=== PATIENT | male | born 1955 | race Two or more races ===

== ENCOUNTER 2019-12-28 19:37 | Inpatient (IN) | payer MEDICAID ==
[~2019-12-28] VITALS: Ht 167.6 cm; Wt 84.9 kg
--- NOTE | 2019-12-28 19:45 | NUR ---
ED Nurse Note: BROUGHT IN BY ANGY DONG 27 FROM HOME C/O SOB WITH EXERTION X 4DAYS. PT STATES HE WAS TESTED POSITIVE COVID 4 WKS AGO. PT PRESENTS WITH COUGH AND WEAKNESS. PT IS 97% ON 15L NRB. VSS, NAD, AAOX4, AMBULATORY, ERMD AT BEDSIDE.
--- NOTE | 2019-12-28 19:55 | NUR ---
ED Nurse Note: BLOOD, URINE, COVID COLLECTED AND SENT TO LAB. XR AT BEDSIDE
[2019-12-28 19:56] VITALS: BP 163/78
[2019-12-28 20:06] LABS: BASOPHILS % (AUTO) 0.6 % (0.0-2.0); EOSINOPHILS % (AUTO) 0.7 % (0.0-3.0); HEMATOCRIT 46.4 % (42.0-52.0); HEMOGLOBIN 15.9 G/DL (14.2-18.0); LYMPHOCYTES % (AUTO) 16.1 % (20.0-45.0); MEAN CORPUSCULAR VOLUME 87 FL (80-99); MONOCYTES % (AUTO) 9.8 % (1.0-10.0); NEUTROPHILS % (AUTO) 72.8 % (45.0-75.0); PLATELET COUNT 330 K/UL (150-450); RED BLOOD COUNT 5.31 M/UL (4.70-6.10); RED CELL DISTRIBUTION WIDTH 12.2 % (11.6-14.8); WHITE BLOOD COUNT 9.6 K/UL (4.8-10.8)
[2019-12-28 20:08] LABS: ANION GAP 9 mmol/L (5-15); BLOOD UREA NITROGEN 12 mg/dL (7-18); CALCIUM 8.7 MG/DL (8.5-10.1); CARBON DIOXIDE 26 MMOL/L (21-32); CHLORIDE 99 MMOL/L (98-107); CREATININE 0.8 MG/DL (0.55-1.30); POTASSIUM 3.9 MMOL/L (3.5-5.1); SODIUM 134 MMOL/L (136-145)
[2019-12-28 20:11] LABS: APPEARANCE,URINE CLEAR; BILIRUBIN, URINE NEGATIVE (NEGATIVE); GLUCOSE, URINE (UA) 4+ (NEGATIVE); KETONES,URINE 1+ (NEGATIVE); LEUKOCYTE ESTERASE ,URINE NEGATIVE (NEGATIVE); NITRITE,URINE NEGATIVE (NEGATIVE); PH,URINE 8 (4.5-8.0); PROTEIN,URINE 2+ (NEGATIVE); UROBILINOGEN,URINE 8 MG/DL (0.0-1.0)
[2019-12-28 20:12] LABS: ALANINE AMINOTRANSFERASE 46 U/L (12-78); ALBUMIN 2.5 G/DL (3.4-5.0); ALBUMIN/GLOBULIN RATIO 0.5 (1.0-2.7); ALKALINE PHOSPHATASE 102 U/L (46-116); ASPARTATE AMINO TRANSFERASE 41 U/L (15-37); BILIRUBIN,TOTAL 0.8 MG/DL (0.2-1.0)
[2019-12-28 20:16] LABS: COLOR,URINE YELLOW
--- NOTE | 2019-12-28 20:18 | Emergency Room Report ---
History of Present Illness General Chief Complaint: Dyspnea/Respdistress Present Illness HPI Disclaimer: Please note that this report is being documented using M[employer] technology. This can lead to erroneous entry secondary to incorrect interpretation by the dictating instrument. HPI: 64-year-old male history of hypertension and diabetes presents from home due to shortness of breath. Patient states he has been short of breath for the past 2 or so. Especially on exertion. Patient also having trouble sleeping. Patient reports a positive coronavirus test 4 weeks ago. Denies any pain nausea or vomiting to me. Patient does report a mildly productive cough. Intermittent fever. Denies any cardiac history. 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 COVID-19 Screening: PUI COVID-19 COVID-19 Testing Source: never received results Patient History Reviewed Nursing Documentation: PMH: Agreed; PSxH: Agreed Nursing Documentation-PMH Hx Hypertension: Yes Hx Diabetes: Yes Review of Systems All Other Systems: negative except mentioned in HPI Physical Exam Vital Signs Date Time Temp Pulse Resp B/P (MAP) Pulse Ox O2 Delivery O2 Flow Rate FiO2 12/28/19 19:28 96 20 173/101 (125) 96 Non-Rebreather 15.0 12/28/19 19:56 97 12/28/19 19:56 99.7 Sp02 EP Interpretation: reviewed, abnormal General Appearance: well appearing, no apparent distress Head: normocephalic, atraumatic Eyes: bilateral eye PERRL, bilateral eye EOMI ENT: hearing grossly normal, moist mucus membranes Neck: full range of motion, supple Respiratory: lungs clear, normal breath sounds, no rhonchi, no respiratory distress, no retraction, no wheezing Cardiovascular #1: normal peripheral pulses, regular rate, rhythm, no murmur Gastrointestinal: non tender, soft, non-distended, no guarding Neurologic: alert, oriented x3, no focal defects Skin: normal color, warm/dry Medical Decision Making Diagnostic Impression: Primary Impression: Pneumonia due to COVID-19 virus Additional Impression: Hypoxia ER Course MDM: Differential included COVID-19, pneumonia, CHF, anemia to name a few Clinical course-IV cardiac monitoring pulse oximetry oxygen supplementation given. Chest x-ray showed evidence of bilateral infiltrates. COVID testing was sent. COVID-19 testing was positive. Patient given Decadron and azithromycin. Will require admission the hospital secondary to his hypoxia and shortness of breath. Patient admitted to the telemetry floor. Labs - Laboratory Tests Test 12/28/19 19:30 White Blood Count 9.6 K/UL (4.8-10.8) Red Blood Count 5.31 M/UL (4.70-6.10) Hemoglobin 15.9 G/DL (14.2-18.0) Hematocrit 46.4 % (42.0-52.0) Mean Corpuscular Volume 87 FL (80-99) Mean Corpuscular Hemoglobin 30.0 PG (27.0-31.0) Mean Corpuscular Hemoglobin Concent 34.3 G/DL (32.0-36.0) Red Cell Distribution Width 12.2 % (11.6-14.8) Platelet Count 330 K/UL (150-450) Mean Platelet Volume 5.5 FL (6.5-10.1) L Neutrophils (%) (Auto) 72.8 % (45.0-75.0) Lymphocytes (%) (Auto) 16.1 % (20.0-45.0) L Monocytes (%) (Auto) 9.8 % (1.0-10.0) Eosinophils (%) (Auto) 0.7 % (0.0-3.0) Basophils (%) (Auto) 0.6 % (0.0-2.0) Urine Color Yellow Urine Appearance Clear Urine pH 8 (4.5-8.0) Urine Specific [place] 1.010 (1.005-1.035) Urine Protein 2+ (NEGATIVE) H Urine Glucose (UA) 4+ (NEGATIVE) H Urine Ketones 1+ (NEGATIVE) H Urine Blood 2+ (NEGATIVE) H Urine Nitrite Negative (NEGATIVE) Urine Bilirubin Negative (NEGATIVE) Urine Urobilinogen 8 MG/DL (0.0-1.0) H Urine Leukocyte Esterase Negative (NEGATIVE) Urine RBC 2-4 /HPF (0 - 0) H Urine WBC 0-2 /HPF (0 - 0) Urine Squamous Epithelial Cells None /LPF (NONE/OCC) Urine Bacteria Occasional /HPF (NONE) Sodium Level 134 MMOL/L (136-145) L Potassium Level 3.9 MMOL/L (3.5-5.1) Chloride Level 99 MMOL/L (98-107) Carbon Dioxide Level 26 MMOL/L (21-32) Anion Gap 9 mmol/L (5-15) Blood Urea Nitrogen 12 mg/dL (7-18) Creatinine 0.8 MG/DL (0.55-1.30) Estimated Glomerular Filtration Rate > 60 mL/min (>60) Glucose Level 195 MG/DL (74-106) H Lactic Acid Level 2.00 mmol/L (0.4-2.0) Calcium Level 8.7 MG/DL (8.5-10.1) Total Bilirubin 0.8 MG/DL (0.2-1.0) Aspartate Amino Transferase (AST) 41 U/L (15-37) H Alanine Aminotransferase (ALT) 46 U/L (12-78) Alkaline Phosphatase 102 U/L (46-116) Troponin I 0.000 ng/mL (0.000-0.056) Total Protein 7.6 G/DL (6.4-8.2) Albumin 2.5 G/DL (3.4-5.0) L Globulin 5.1 g/dL Albumin/Globulin Ratio 0.5 (1.0-2.7) L Microbiology Date/Time Source Procedure Growth Status 12/28/19 19:30 Nasopharynx SARS-CoV-2 RdRp Gene Assay - Final Complete On reevaluation:patient improved on oxygen via facemask Plan patient will be admitted to telemetry floor- EKG Diagnostic Results Rate: normal Rhythm: NSR ST Segments: other - Incomplete right bundle branch block Rhythm Strip Diag. Results EP Interpretation: yes Rhythm: NSR, no PVC's, no ectopy Chest X-Ray Diagnostic Results Chest X-Ray Diagnostic Results : Chest X-Ray Ordered: Yes # of Views/Limited/Complete: 1 View Indication: Shortness of Breath EP Interpretation: Yes Interpretation: other - Patchy consolidations bilaterally, no pneumothorax noted, Electronically Signed by: Rios Renee MD Last Vital Signs Date Time Temp Pulse Resp B/P (MAP) Pulse Ox O2 Delivery O2 Flow Rate FiO2 12/28/19 19:56 99.7 90 24 163/78 97 Non-Rebreather 15.0 12/28/19 19:56 97 Status: improved Disposition: ADMITTED INPATIENT Condition: Serious Rios Renee M.D. Dec 28, 2019 20:18
[2019-12-28] MEDS ORDERED: Azithromycin 500 MG in NS 275 ML IV ONE (21:00)
[2019-12-28] MEDS ORDERED: dexAMETHasone 10mg/ml Inj IV ONE (21:00)
[2019-12-28] MEDS ORDERED: ENALAPRIL MALE2.5 MG ORAL (21:02)
[2019-12-28] MEDS ORDERED: METFORMIN HCL500 M1 ORAL (21:03)
[2019-12-28] MEDS ORDERED: ASPIR 8181 MG ORAL (21:03)
[2019-12-28] MEDS ORDERED: FLOMAX0.4 MG ORAL (22:17)
[2019-12-28] MEDS ORDERED: GLIPIZIDE10 MG PO (22:18)
--- NOTE | 2019-12-28 22:18 | NUR ---
ED Nurse Note: report given SOL Esteban
[2019-12-28] MEDS ORDERED: NAPROXEN250 M1 PO (22:19)
[2019-12-28 22:25] VITALS: BP 153/81
--- NOTE | 2019-12-28 22:25 | NUR ---
TRANSFER TO FLOOR: Patient transferred to [facility] via [facility] in stable condition via transport 19 protocol as ordered, per dr Srivastava. Report given to Eulalia HORTON. Belongings sent with patient.
--- NOTE | 2019-12-28 22:45 | NUR ---
NURSE NOTES: Report received from SOL Blake in ER. Patient being admitted to tele for COVID 19 positive, hypoxia. secondary diagnosis of DM, HTN. Patient is alert and oriented x4. On 10 liters non rebreather mask. O2 sat 98 to 99%. Belongings accounted with SOL Blake. He has $248 be in his pocket. Call light and bedside table within reach. monitor car operator intact. Will continue with plan of care. Will contact Dr. Srivastava for orders.
--- NOTE | 2019-12-28 23:00 | NUR ---
NURSE NOTES: Contacted Dr. Srivastava for admission orders, awaiting call back.
[2019-12-29] VITALS: BP 150/68
--- NOTE | 2019-12-29 03:30 | NUR ---
NURSE NOTES: Dr. Srivastava called back stating that he is off and Dr. Marks is covering for him. Contacted Dr. Marks awaiting call back.
--- NOTE | 2019-12-29 03:45 | NUR ---
NURSE NOTES: Dr. Marks called back and gave orders for admission. Also ordered to continue home medication on recon list.
[2019-12-29 04:00] VITALS: BP 139/73
[2019-12-29] MEDS ORDERED: Albuterol 90mcg Inhaler 8gm INH PRN (04:00)
[2019-12-29] MEDS: metFORMIN 500mg tab ORAL SCH ×2 (06:52→15:53)
--- NOTE | 2019-12-29 07:24 | NUR ---
HAND-OFF: Report given to SOL Siddiqi. Requested to follow up with MD if patient should start sliding scale. Patient stable at this time.
--- NOTE | 2019-12-29 07:31 | NUR ---
Communications Electrician Supervisor: Received report from SOL Esteban. Patient AAO x4, in bed eating breakfast. Denies pain. Breathing regular. Patient mildly short of breath on NC. Able to speak in complete sentences. No cyanosis. IV intact, flushed patent, no redness. Fall precautions in place.
[2019-12-29 08:00] VITALS: BP 150/88
[2019-12-29 08:27] LABS: BASOPHILS % (AUTO) 0.2 % (0.0-2.0); HEMATOCRIT 47.9 % (42.0-52.0); HEMOGLOBIN 15.9 G/DL (14.2-18.0); LYMPHOCYTES % (AUTO) 9.7 % (20.0-45.0); MEAN CORPUSCULAR VOLUME 88 FL (80-99); NEUTROPHILS % (AUTO) 83.1 % (45.0-75.0); PLATELET COUNT 356 K/UL (150-450); RED BLOOD COUNT 5.44 M/UL (4.70-6.10); RED CELL DISTRIBUTION WIDTH 11.7 % (11.6-14.8); WHITE BLOOD COUNT 6.1 K/UL (4.8-10.8)
[2019-12-29 08:43] LABS: ALANINE AMINOTRANSFERASE 44 U/L (12-78); ALBUMIN 2.3 G/DL (3.4-5.0); ALBUMIN/GLOBULIN RATIO 0.4 (1.0-2.7); ALKALINE PHOSPHATASE 101 U/L (46-116); ANION GAP 8 mmol/L (5-15); ASPARTATE AMINO TRANSFERASE 37 U/L (15-37); BILIRUBIN,TOTAL 0.7 MG/DL (0.2-1.0); BLOOD UREA NITROGEN 15 mg/dL (7-18); CALCIUM 8.8 MG/DL (8.5-10.1); CARBON DIOXIDE 27 MMOL/L (21-32); CHLORIDE 100 MMOL/L (98-107); CREATININE 0.7 MG/DL (0.55-1.30); POTASSIUM 4.9 MMOL/L (3.5-5.1); SODIUM 135 MMOL/L (136-145)
[2019-12-29] MEDS: dexAMETHasone 10mg/ml Inj IV SCH (09:26)
[2019-12-29] MEDS: Aspirin EC 81mg tab ORAL SCH (09:27)
[2019-12-29] MEDS: Tamsulosin 0.4mg cap ORAL SCH (09:27)
[2019-12-29] MEDS: Naproxen 500mg tab ORAL SCH ×2 (09:28→17:02)
[2019-12-29] MEDS: Enoxaparin 40mg Inj SUBQ SCH (09:30)
--- NOTE | 2019-12-29 09:45 | History & Physical ---
History and Physical History & Physicial History and Physical HPI Patient is a 64-year-old male with past medicalhistory of Hypertension and Diabetes presents from home due to shortness of breath. Patient states he has been short of breath, had a cough for the past 2 weeks, worse on exertion. He had a positive coronavirus test 4 weeks ago. Denies any pain nausea or vomiting to me. Cough is mildly productive. Intermittent fever. Denies any cardiac history. PMH: Hypertension and diabetes Allergies: No Known Allergies SH: NC FH: NC All Other Systems: negative except mentioned in HPI Physical Exam Vital Signs Noted Date Time Temp Pulse Resp B/P (MAP) Pulse Ox O2 Delivery O2 Flow Rate FiO2 12/28/19 19:28 96 20 173/101 (125) 96 Non-Rebreather 15.0 12/28/19 19:56 97 12/28/19 19:56 99.7 General Appearance: well appearing, no apparent distress Head: normocephalic, atraumatic Eyes: bilateral eye PERRL, bilateral eye EOMI ENT: hearing grossly normal, moist mucus membranes Neck: full range of motion, supple Respiratory: lungs clear, normal breath sounds, no rhonchi, no respiratory distress, no retraction, no wheezing Cardiovascular: HS1, HS2 normal. normal peripheral pulses, regular rate, rhythm , no murmur Gastrointestinal: non tender, soft, non-distended, no guarding Neurologic: alert, oriented x3, no focal defects Skin: normal color, warm/dry, no edema Impression: Pneumonia due to COVID-19 virus Hypoxia Diabetes Hypertension Plan: Continue Decadron and azithromycin. O2 PRN ID Consultation ISS Cardiac/Diabetic Diet PRODUCTION SUPERINTENDENT Medications Monitor labs Laboratory Tests noted Test 12/28/19 19:30 White Blood Count 9.6 K/UL (4.8-10.8) Red Blood Count 5.31 M/UL (4.70-6.10) Hemoglobin 15.9 G/DL (14.2-18.0) Hematocrit 46.4 % (42.0-52.0) Mean Corpuscular Volume 87 FL (80-99) Mean Corpuscular Hemoglobin 30.0 PG (27.0-31.0) Mean Corpuscular Hemoglobin Concent 34.3 G/DL (32.0-36.0) Red Cell Distribution Width 12.2 % (11.6-14.8) Platelet Count 330 K/UL (150-450) Mean Platelet Volume 5.5 FL (6.5-10.1) L Neutrophils (%) (Auto) 72.8 % (45.0-75.0) Lymphocytes (%) (Auto) 16.1 % (20.0-45.0) L Monocytes (%) (Auto) 9.8 % (1.0-10.0) Eosinophils (%) (Auto) 0.7 % (0.0-3.0) Basophils (%) (Auto) 0.6 % (0.0-2.0) Urine Color Yellow Urine Appearance Clear Urine pH 8 (4.5-8.0) Urine Specific [place] 1.010 (1.005-1.035) Urine Protein 2+ (NEGATIVE) H Urine Glucose (UA) 4+ (NEGATIVE) H Urine Ketones 1+ (NEGATIVE) H Urine Blood 2+ (NEGATIVE) H Urine Nitrite Negative (NEGATIVE) Urine Bilirubin Negative (NEGATIVE) Urine Urobilinogen 8 MG/DL (0.0-1.0) H Urine Leukocyte Esterase Negative (NEGATIVE) Urine RBC 2-4 /HPF (0 - 0) H Urine WBC 0-2 /HPF (0 - 0) Urine Squamous Epithelial Cells None /LPF (NONE/OCC) Urine Bacteria Occasional /HPF (NONE) Sodium Level 134 MMOL/L (136-145) L Potassium Level 3.9 MMOL/L (3.5-5.1) Chloride Level 99 MMOL/L (98-107) Carbon Dioxide Level 26 MMOL/L (21-32) Anion Gap 9 mmol/L (5-15) Blood Urea Nitrogen 12 mg/dL (7-18) Creatinine 0.8 MG/DL (0.55-1.30) Estimated Glomerular Filtration Rate > 60 mL/min (>60) Glucose Level 195 MG/DL (74-106) H Lactic Acid Level 2.00 mmol/L (0.4-2.0) Calcium Level 8.7 MG/DL (8.5-10.1) Total Bilirubin 0.8 MG/DL (0.2-1.0) Aspartate Amino Transferase (AST) 41 U/L (15-37) H Alanine Aminotransferase (ALT) 46 U/L (12-78) Alkaline Phosphatase 102 U/L (46-116) Troponin I 0.000 ng/mL (0.000-0.056) Total Protein 7.6 G/DL (6.4-8.2) Albumin 2.5 G/DL (3.4-5.0) L Globulin 5.1 g/dL Albumin/Globulin Ratio 0.5 (1.0-2.7) L Microbiology Date/Time Source Procedure Growth Status 12/28/19 19:30 Nasopharynx SARS-CoV-2 RdRp Gene Assay - Final Complete EKG: Rate: normal Rhythm: NSR ST Segments: other - Incomplete right bundle branch block Chest X-Ray : other - Patchy consolidations bilaterally, no pneumothorax Silvestre Lobo MD Dec 29, 2019 09:45
--- NOTE | 2019-12-29 09:58 | NUR ---
CASE MANAGEMENT:INITIAL REVIEW 64YR OLD MALE BIBA FROM HOME CC: DYSPNEA, RESPIRATORY DISTRESS SOB X4DAYS + COUGH; EMT TO PUT ON NRM @15L SI:SOB . HYPOXIA. PUI COVID-19 + 4 WKS AGO 99.7 96 20 173/101 96% ON NRM 15L COVID-19 + . NA+134 BG 195 AST 41 ALB 2.5 IS: IV ZITHROMAX X1 IV DECADRON X1 \: 2E TELE UNIT DCP:HOME WHEN STABLE PLAN: ISOLATE CONT OXYGEN THERAPY CASE MANAGEMENT:REVIEW 12/29/2019 SI: COVID-19 + PNA . UTI . UNCONTROLLED DM 101.3 83 22 150/68 98% ON NRM 7L BG 241 ALB 2.3 IS: IV DECADRON QD METFORMIN PO BID LOVENOX SQ QD VASOTEC PO BID FLOMAX PO QD ASPIRIN PO QD NAPROXEN PO BID PROVENTIL MDI INH Q6HR/PRN IV ZITHROMAX QD X7 BAGS \: 2E TELE UNIT DCP:HOME WHEN STABLE PLAN: CARDIAC DIET CONT ISOLATE CONT OXYGEN THERAPY START ON ZITHROMAX X7 BAGS
[2019-12-29 12:00] VITALS: BP 152/71
[2019-12-29] MEDS: NovoLOG Insulin Flexpen SUBQ SCH ×3 (12:23→21:00)
[2019-12-29 16:00] VITALS: BP 130/77
--- NOTE | 2019-12-29 19:51 | NUR ---
NURSE HAND-OFF REPORT: Important Events on Shift: Patient Status: Stable Diet: Regular CCHO/Low NA Pending Orders: Pending Results/Labs: CXR Pending MD notification: Latest Vital Signs: Temperature 96.9 , Pulse 87 , B/P 130 /77 , Respiratory Rate 20 , O2 SAT 96 , Nasal Cannula, O2 Flow Rate 6.0 . Vital Sign Comment: EKG Rhythm: Sinus Rhythm Rhythm change?: N MD Notified?: - MD Response: Latest Jade Fall Score: 35 Fall Risk: Medium Risk Safety Measures: Call light Within Reach, Bed Alarm Zone 1, Side Rails Side Rails x2, Bed position Low and Locked. Fall Precautions: Patient Fall Education Report given to SOL Oneill.
--- NOTE | 2019-12-29 19:55 | NUR ---
NURSE NOTES: Got report from Neeru HORTON. Pt in stable condition. Denies any pain. Denies any n/v or SOB. Pt is here for hypoxis/Covid+. Pt is fully alert and ambulatory steady. Qatari speaking very little Welsh. Pt is Covid+. VSS. Pt is on 6L Nasal Cannula titrate down as needed sating 95%. Pt is on Regular CCHO low Na diet takes pill whole. Pt is ACHS blood glucose checks with coverage if needed. No skin issues noted. Pt has R AC 20g slocked. Pt resting in bed comfortably. Bed in low and locked position, call light within reach, bedside table within reach. Continue to monitor. Addendum: 12/29/19 at 2322 by Nino Lunsford RN Pt is on the plate conditioner running Sinus Rhythm.
[2019-12-29 20:00] VITALS: BP 136/71
[2019-12-29] MEDS ORDERED: Azithromycin 500 MG in D5W 275 ML IV SCH (22:00)
[2019-12-30] VITALS: BP 143/75
[2019-12-30 04:00] VITALS: BP 147/73
[2019-12-30] MEDS: metFORMIN 500mg tab ORAL SCH ×2 (06:26→16:36)
[2019-12-30] MEDS: NovoLOG Insulin Flexpen SUBQ SCH ×4 (06:38→20:38)
[2019-12-30 07:25] LABS: BASOPHILS % (AUTO) 0.3 % (0.0-2.0); HEMATOCRIT 46.2 % (42.0-52.0); HEMOGLOBIN 15.5 G/DL (14.2-18.0); MEAN CORPUSCULAR VOLUME 88 FL (80-99); MONOCYTES % (AUTO) 9.2 % (1.0-10.0); NEUTROPHILS % (AUTO) 82.5 % (45.0-75.0); PLATELET COUNT 436 K/UL (150-450); RED BLOOD COUNT 5.26 M/UL (4.70-6.10); RED CELL DISTRIBUTION WIDTH 11.7 % (11.6-14.8); WHITE BLOOD COUNT 12.8 K/UL (4.8-10.8)
--- NOTE | 2019-12-30 07:28 | NUR ---
NURSE HAND-OFF REPORT: Important Events on Shift: Patient Status: Stable Diet: Regular CCHO Low Na Diet Pending Orders: Chest Xray Pending Results/Labs: 8/10 AM Labs Pending MD notification: Latest Vital Signs: Temperature 98.1 , Pulse 71 , B/P 147 /73 , Respiratory Rate 18 , O2 SAT 95 , Nasal Cannula, O2 Flow Rate 5.0 . Vital Sign Comment: EKG Rhythm: Sinus Rhythm Rhythm change?: N MD Notified?: - MD Response: Latest Jade Fall Score: 35 Fall Risk: Medium Risk Safety Measures: Call light Within Reach, Bed Alarm Zone 1, Side Rails Side Rails x2, Bed position Low and Locked. Fall Precautions: Patient Fall Education Report given to Leilani HORTON.
--- NOTE | 2019-12-30 07:29 | NUR ---
NURSE NOTES: Received report from SOL Olguin. Pt is AOx4, stable and sitting up in bed. Pt R AC 20g IV asymptomatic and intact. Pt has no S/S or complaints of distress at this time. Pt bed low and locked, call light in reach, and Pt safety education reenforced. Pt on 5 L NC, SpO2 96%. Will continue to monitor.
[2019-12-30 07:51] LABS: ALANINE AMINOTRANSFERASE 40 U/L (12-78); ALBUMIN 2.4 G/DL (3.4-5.0); ALBUMIN/GLOBULIN RATIO 0.5 (1.0-2.7); ALKALINE PHOSPHATASE 83 U/L (46-116); ANION GAP 8 mmol/L (5-15); ASPARTATE AMINO TRANSFERASE 26 U/L (15-37); BILIRUBIN,TOTAL 0.8 MG/DL (0.2-1.0); BLOOD UREA NITROGEN 16 mg/dL (7-18); CALCIUM 8.6 MG/DL (8.5-10.1); CARBON DIOXIDE 25 MMOL/L (21-32); CHLORIDE 101 MMOL/L (98-107); CREATININE 0.8 MG/DL (0.55-1.30); POTASSIUM 4.3 MMOL/L (3.5-5.1); SODIUM 134 MMOL/L (136-145)
[2019-12-30 08:00] VITALS: BP 138/80
[2019-12-30] MEDS: Tamsulosin 0.4mg cap ORAL SCH (08:33)
[2019-12-30] MEDS: Aspirin EC 81mg tab ORAL SCH (08:34)
[2019-12-30] MEDS: dexAMETHasone 10mg/ml Inj IV SCH (08:35)
[2019-12-30] MEDS: Enoxaparin 40mg Inj SUBQ SCH (08:36)
[2019-12-30] MEDS: Naproxen 500mg tab ORAL SCH ×3 (08:36→17:58)
--- NOTE | 2019-12-30 08:36 | General Progress Note ---
Assessment/Plan Assessment/Plan: Impression: Pneumonia due to COVID-19 virus Hypoxia Diabetes Hypertension Plan: Continue Decadron and azithromycin. 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 Monitor labs impression, plan, and exam edited and reviewed in detail care discussed with RN Subjective Allergies: Coded Allergies: No Known Allergies (Unverified , 12/28/19) Subjective d/w RN on 5 liters oxygen otherwise stable Objective Last 24 Hour Vital Signs Date Time Temp Pulse Resp B/P (MAP) Pulse Ox O2 Delivery O2 Flow Rate FiO2 12/30/19 08:07 Nasal Cannula 5.0 12/30/19 08:00 97.9 77 20 138/80 (99) 97 12/30/19 04:00 98.1 71 18 147/73 (97) 95 12/30/19 04:00 62 12/30/19 00:00 99.0 89 18 143/75 (97) 95 12/30/19 00:00 88 12/29/19 21:00 Nasal Cannula 6.0 12/29/19 21:00 136/71 12/29/19 20:00 88 12/29/19 20:00 98.1 96 20 136/71 (92) 95 12/29/19 16:00 96.9 87 20 130/77 (94) 96 12/29/19 16:00 87 12/29/19 12:00 93 12/29/19 12:00 96.6 71 20 152/71 (98) 98 12/29/19 09:27 150/88 12/29/19 09:00 Nasal Cannula 6.0 Intake and Output 12/29/19 12/30/19 19:00 07:00 Intake Total 1700 ml 240 ml Output Total 900 ml 1800 ml Balance 800 ml -1560 ml Intake Oral 1700 ml 240 ml Output Urine Total 900 ml 1800 ml # Voids 3 4 # Bowel Movements 1 Laboratory Tests 12/29/19 11:53: POC Whole Blood Glucose 287H 12/29/19 15:55: POC Whole Blood Glucose 284H 12/30/19 06:13: White Blood Count 12.8#H, Red Blood Count 5.26, Hemoglobin 15.5, Hematocrit 46.2 , Mean Corpuscular Volume 88, Mean Corpuscular Hemoglobin 29.5, Mean Corpuscular Hemoglobin Concent 33.6, Red Cell Distribution Width 11.7, Platelet Count 436, Mean Platelet Volume 5.3L, Neutrophils (%) (Auto) 82.5H, Lymphocytes (%) (Auto) 8.0L, Monocytes (%) (Auto) 9.2, Eosinophils (%) (Auto) 0.0, Basophils (%) (Auto) 0.3, Sodium Level 134L, Potassium Level 4.3, Chloride Level 101, Carbon Dioxide Level 25, Anion Gap 8, Blood Urea Nitrogen 16, Creatinine 0.8, Estimat Glomerular Filtration Rate > 60, Glucose Level 250H, Hemoglobin A1c 10.3H, Calcium Level 8.6, Total Bilirubin 0.8, Aspartate Amino Transf (AST/SGOT) 26, Alanine Aminotransferase (ALT/SGPT) 40, Alkaline Phosphatase 83, Pro-B-Type Natriuretic Peptide 360H, Total Protein 7.2, Albumin 2.4L, Globulin 4.8, Albumin/Globulin Ratio 0.5L Height (Feet): 5 Height (Inches): 6.00 Weight (Pounds): 190 Objective deferred due to COVID+ Taj Srivastava MD Dec 30, 2019 08:36
[2019-12-30 11:46] VITALS: BP 131/71
--- NOTE | 2019-12-30 13:42 | NUR ---
CASE MANAGEMENT:REVIEW 12/30/2019 SI: COVID-19 + PNA . UTI . UNCONTROLLED DM 96.7 60 18 131/71 97% ON NRM 5L WBC 12.8 BG 250 HA1C 10.3 BNP 360 ALB 2.4 IS: IV DECADRON QD METFORMIN PO BID LOVENOX SQ QD VASOTEC PO BID FLOMAX PO QD ASPIRIN PO QD NAPROXEN PO BID PROVENTIL MDI INH Q6HR/PRN \: 2E TELE UNIT DCP:HOME WHEN STABLE PLAN: CONT ISOLATE CONT OXYGEN THERAPY CHEST X-RAY~RESULTS PENDING CONTROL DM DIABETIC EDUCATION
--- NOTE | 2019-12-30 13:52 | NUR ---
*-* INSURANCE *-*12/29/19 UPDATED CLINICALS AND REVIEWS HAVE BEEN FAXED TO: [employer] T:[phone] [facility] [phone]
--- NOTE | 2019-12-30 13:56 | NUR ---
*-* INSURANCE *-*12/29/19 UPDATED CLINICALS AND REVIEWS HAVE BEEN FAXED TO: [employer] F:[phone] FLA[facility]ITA [facility] F:[phone]
--- NOTE | 2019-12-30 13:57 | NUR ---
*-* INSURANCE *-* UPDATED CLINICALS AND REVIEWS HAVE BEEN FAXED TO: [employer] F:[phone] FLAQUITA ARCINIEGA F:[phone]
--- NOTE | 2019-12-30 14:03 | Diagnostic Imaging Report ---
Indication: Dyspnea Technique: One view of the chest Comparison: 12/28/2019 Findings: Current exam somewhat less heavily exposed. Allowing for differences in technique, stable to slightly worse bilateral infiltrates. The pleural spaces are grossly clear. The heart size is upper limits of normal. Impression: Bilateral infiltrates, likely pneumonia, stable to slightly worse since exam of 2 days prior.
[2019-12-30] MEDS ORDERED: IV Preparation Fee MISC PRN (14:45)
[2019-12-30] MEDS ORDERED: Remdesivir Fact Sheet MISC SCH (14:45)
[2019-12-30 16:00] VITALS: BP 148/77
--- NOTE | 2019-12-30 16:00 | Consultation ---
DATE OF CONSULTATION: 12/30/2019 INFECTIOUS DISEASES CONSULTATION REFERRING PHYSICIAN: Taj Srivastava M.D. REASON FOR CONSULTATION: COVID-19 pneumonia. HISTORY OF PRESENTING ILLNESS: This is a 64-year-old gentleman with history of diabetes, hypertension, who comes in with fever, chills, cough, and shortness of breath. He was found to have COVID-19 pneumonia and an infectious diseases consultation has been obtained for antibiotics. PAST MEDICAL HISTORY: 1. History of diabetes. 2. History of hypertension. SOCIAL HISTORY: He does not smoke, drink, or use drugs. FAMILY HISTORY: Noncontributory. REVIEW OF SYSTEMS: RESPIRATORY: He has fever and chills. He has cough. He has shortness of breath. No chest pain. CARDIAC: No chest pain. No palpitation. No dizziness. No syncope. GASTROINTESTINAL: No nausea. No vomiting. No abdominal pain or diarrhea. MEDICATIONS: As an inpatient, he is on azithromycin, insulin, enoxaparin, dexamethasone, aspirin, enalapril, Flomax, Naprosyn, metformin, albuterol, Zofran, Tylenol. ALLERGIES: No known drug allergies. PHYSICAL EXAMINATION: VITAL SIGNS: Temperature 97.9, T-max of 101.3, pulse of 77, respiratory rate rate 20, blood pressure 138/80, O2 sat of 99% on 5 L nasal cannula oxygen. Examination deferred due to COVID-19. LABORATORY AND DIAGNOSTIC DATA: White count 12.8, hemoglobin 15.5, hematocrit 46.2, MCV 88, platelet count of 436. Sodium 134, potassium 4.3, chloride 101, bicarb 25, BUN 16, creatinine 0.8, glucose 250, calcium 8.6, total bilirubin 0.8, AST 26, ALT 40, alkaline phosphatase 83. Beta-natriuretic peptide 360. Total protein 7.2, albumin 2.4. UA is showing 0-2 white cells. COVID-19 rapid test was positive. Blood cultures are negative. ASSESSMENT: This is a 64-year-old gentleman with history of diabetes, hypertension, who comes in with fever, chills, cough, shortness of breath, and is found to have: 1. COVID-19 pneumonia. 2. Fever. 3. Diabetes. 4. Hypertension. PLAN: 1. We will start the patient on remdesivir. Explained the benefits and risks and the patient has consented to it. 2. Continue Decadron, day 3. 3. Continue isolation. 4. We will follow up the patient clinically. 5. Discontinue azithromycin. I would like to thank Dr. Srivastava for this consultation. Caren Gant M.D. DR: KAYLENE JOB#: [id number] CC: Taj Srivastava M.D.; Fax#: [phone]
[2019-12-30] MEDS ORDERED: Loading Dose:Remdesivir 200mg/NS 210ml IV SCH ×2 (17:00)
--- NOTE | 2019-12-30 19:16 | NUR ---
NURSE HAND-OFF REPORT: Important Events on Shift: started remedisvir Patient Status: FC Diet: CCHO medium, regular, low sodium Pending Orders: n/a Pending Results/Labs:n/a Pending MD notification:n/a Latest Vital Signs: Temperature 96.7 , Pulse 73 , B/P 148 /77 , Respiratory Rate 19 , O2 SAT 96 , Nasal Cannula, O2 Flow Rate 5.0 . Vital Sign Comment: EKG Rhythm: Sinus Rhythm Rhythm change?: N MD Notified?: - MD Response: Latest Jade Fall Score: 35 Fall Risk: Medium Risk Safety Measures: Call light Within Reach, Bed Alarm Zone 1, Side Rails Side Rails x2, Bed position Low and Locked. Fall Precautions: Patient Fall Education Report given to SOL Ashraf.
--- NOTE | 2019-12-30 19:38 | NUR ---
NURSE NOTES: Received patient report form SOL Galloway. Patient shows no signs of distress or pain at the time. AO x4. Patient is on 2 L nasal canula and saturating at 97% and shows no signs of respiratory distress. HR at 76 bpm. IV is patent and flushed. There are no signs of erythema, infiltration, or bleeding. Bed is in the lowest position, call light within reach, side rails up x3. Will continue to monitor.
[2019-12-30 20:00] VITALS: BP 145/85
[2019-12-31] VITALS: BP 151/93
[2019-12-31 04:00] VITALS: BP 141/65
[2019-12-31 05:02] LABS: BASOPHILS % (AUTO) 0.6 % (0.0-2.0); HEMATOCRIT 43.4 % (42.0-52.0); HEMOGLOBIN 14.7 G/DL (14.2-18.0); LYMPHOCYTES % (AUTO) 12.9 % (20.0-45.0); MEAN CORPUSCULAR VOLUME 87 FL (80-99); MONOCYTES % (AUTO) 6.8 % (1.0-10.0); NEUTROPHILS % (AUTO) 79.7 % (45.0-75.0); PLATELET COUNT 466 K/UL (150-450); RED BLOOD COUNT 4.97 M/UL (4.70-6.10); RED CELL DISTRIBUTION WIDTH 11.6 % (11.6-14.8)
[2019-12-31 05:24] LABS: ALANINE AMINOTRANSFERASE 39 U/L (12-78); ALBUMIN 2.3 G/DL (3.4-5.0); ALBUMIN/GLOBULIN RATIO 0.5 (1.0-2.7); ALKALINE PHOSPHATASE 78 U/L (46-116); ANION GAP 8 mmol/L (5-15); ASPARTATE AMINO TRANSFERASE 24 U/L (15-37); BILIRUBIN,TOTAL 0.6 MG/DL (0.2-1.0); BLOOD UREA NITROGEN 18 mg/dL (7-18); CALCIUM 8.6 MG/DL (8.5-10.1); CARBON DIOXIDE 26 MMOL/L (21-32); CHLORIDE 100 MMOL/L (98-107); CREATININE 0.8 MG/DL (0.55-1.30); POTASSIUM 4.2 MMOL/L (3.5-5.1); SODIUM 134 MMOL/L (136-145)
[2019-12-31] MEDS: metFORMIN 500mg tab ORAL SCH ×2 (06:21→15:54)
[2019-12-31] MEDS: NovoLOG Insulin Flexpen SUBQ SCH ×4 (06:27→20:37)
--- NOTE | 2019-12-31 06:54 | NUR ---
NURSE HAND-OFF REPORT: Important Events on Shift: Patient Status: Diet: Cardiac Diet/ Consistent Carbs Pending Orders: NA Pending Results/Labs:NA Pending MD notification: Latest Vital Signs: Temperature 97.7 , Pulse 70 , B/P 141 /65 , Respiratory Rate 19 , O2 SAT 92 , Nasal Cannula, O2 Flow Rate 5.0 . Vital Sign Comment: EKG Rhythm: Sinus Rhythm Rhythm change?: N MD Notified?: - MD Response: Latest Jade Fall Score: 35 Fall Risk: Medium Risk Safety Measures: Call light Within Reach, Bed Alarm Zone 1, Side Rails Side Rails x2, Bed position Low and Locked. Fall Precautions: Patient Fall Education Report given to .
--- NOTE | 2019-12-31 07:15 | NUR ---
NURSE NOTES: Received report from SOL Ashraf. Pt is AOx4, stable and laying down in bed. Pt R AC 20g IV asymptomatic and intact. Pt has no S/S or complaints of distress at this time. Pt bed low and locked, call light in reach, and Pt safety education reenforced. Pt on 5 L NC, SpO2 92%. Will continue to monitor.
--- NOTE | 2019-12-31 07:20 | General Progress Note ---
Assessment/Plan Assessment/Plan: Impression: Pneumonia due to COVID-19 virus Hypoxia Diabetes Hypertension hyperglycemia Plan: Continue Decadron and azithromycin. 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 PAD Medications Monitor labs and imaging impression, plan, and exam edited and reviewed in detail care discussed with RN Subjective Allergies: Coded Allergies: No Known Allergies (Unverified , 12/28/19) Subjective d/w RN still on oxygen otherwise stable Xray worse Objective Last 24 Hour Vital Signs Date Time Temp Pulse Resp B/P (MAP) Pulse Ox O2 Delivery O2 Flow Rate FiO2 12/31/19 04:00 97.7 70 19 141/65 (90) 92 12/31/19 04:00 75 12/31/19 00:00 63 12/31/19 00:00 98.9 73 19 151/93 (112) 96 12/30/19 21:00 Nasal Cannula 5.0 12/30/19 20:37 145/85 12/30/19 20:00 97.6 68 19 145/85 (105) 91 12/30/19 20:00 79 12/30/19 16:22 73 12/30/19 16:00 96.7 79 19 148/77 (100) 96 12/30/19 12:00 93 12/30/19 11:46 96.7 60 18 131/71 (91) 97 12/30/19 08:34 138/80 12/30/19 08:07 Nasal Cannula 5.0 12/30/19 08:00 97.9 77 20 138/80 (99) 97 12/30/19 08:00 75 Intake and Output 12/30/19 12/31/19 19:00 07:00 Intake Total 1500 ml 400 ml Output Total 1200 ml 1700 ml Balance 300 ml -1300 ml Intake Oral 1500 ml 400 ml Output Urine Total 1200 ml 1700 ml # Voids 3 3 Laboratory Tests 12/30/19 11:40: POC Whole Blood Glucose [Pending] 12/30/19 16:54: POC Whole Blood Glucose 316H 12/30/19 20:26: POC Whole Blood Glucose 255H 12/31/19 04:00: White Blood Count 12.0H, Red Blood Count 4.97, Hemoglobin 14.7, Hematocrit 43.4 , Mean Corpuscular Volume 87, Mean Corpuscular Hemoglobin 29.6, Mean Corpuscular Hemoglobin Concent 33.9, Red Cell Distribution Width 11.6, Platelet Count 466H, Mean Platelet Volume 5.0L, Neutrophils (%) (Auto) 79.7H, Lymphocytes (%) (Auto) 12.9L, Monocytes (%) (Auto) 6.8, Eosinophils (%) (Auto) 0.0, Basophils (%) (Auto) 0.6, Sodium Level 134L, Potassium Level 4.2, Chloride Level 100, Carbon Dioxide Level 26, Anion Gap 8, Blood Urea Nitrogen 18, Creatinine 0.8, Estimat Glomerular Filtration Rate > 60, Glucose Level 190H, Calcium Level 8.6, Total Bilirubin 0.6, Direct Bilirubin 0.2, Aspartate Amino Transf (AST/SGOT) 24, Alanine Aminotransferase (ALT/SGPT) 39, Alkaline Phosphatase 78, Total Protein 6.6, Albumin 2.3L, Globulin 4.3, Albumin/Globulin Ratio 0.5L 12/31/19 05:46: POC Whole Blood Glucose 174H Height (Feet): 5 Height (Inches): 6.00 Weight (Pounds): 189 Objective deferred due to COVID+ Taj Srivastava MD Dec 31, 2019 07:20
[2019-12-31 08:00] VITALS: BP 149/84
[2019-12-31] MEDS: Tamsulosin 0.4mg cap ORAL SCH (09:01)
[2019-12-31] MEDS: dexAMETHasone 10mg/ml Inj IV SCH (09:02)
[2019-12-31] MEDS: Naproxen 500mg tab ORAL SCH ×2 (09:02→17:13)
[2019-12-31] MEDS: Aspirin EC 81mg tab ORAL SCH (09:02)
[2019-12-31] MEDS: Enoxaparin 40mg Inj SUBQ SCH (09:03)
--- NOTE | 2019-12-31 11:19 | Infectious Diseases Prog Note ---
Assessment/Plan Assessment/Plan antibiotics remdesivir 12.30.19 - dexamethasone A 1. COVID 19 pneumonia on 5 liters O2, 97 % saturation 2. diabetes mellitus 3. hypertension P 1. continue remdesivir day 2 2. continue dexamethasone day 4 3. continue isolation 4. will follow up cultures Subjective Constitutional: Denies: fever, chills Respiratory: Reports: shortness of breath, dry cough Gastrointestinal/Abdominal: Denies: nausea, vomiting, diarrhea Musculoskeletal: Denies: pain Allergies: Coded Allergies: No Known Allergies (Unverified , 12/28/19) Objective Last 24 Hour Vital Signs Date Time Temp Pulse Resp B/P (MAP) Pulse Ox O2 Delivery O2 Flow Rate FiO2 12/31/19 09:02 149/84 12/31/19 08:34 68 12/31/19 08:00 97.5 78 18 149/84 (105) 91 12/31/19 07:50 Nasal Cannula 5.0 12/31/19 04:00 97.7 70 19 141/65 (90) 92 12/31/19 04:00 75 12/31/19 00:00 63 12/31/19 00:00 98.9 73 19 151/93 (112) 96 12/30/19 21:00 Nasal Cannula 5.0 12/30/19 20:37 145/85 12/30/19 20:00 97.6 68 19 145/85 (105) 91 12/30/19 20:00 79 12/30/19 16:22 73 12/30/19 16:00 96.7 79 19 148/77 (100) 96 12/30/19 12:00 93 12/30/19 11:46 96.7 60 18 131/71 (91) 97 Height (Feet): 5 Height (Inches): 6.00 Weight (Pounds): 189 Microbiology Date/Time Source Procedure Growth Status 12/28/19 19:30 Blood Blood Culture - Preliminary NO GROWTH AFTER 48 HOURS Resulted 12/28/19 19:15 Blood Blood Culture - Preliminary NO GROWTH AFTER 48 HOURS Resulted 12/28/19 19:30 Nasopharynx SARS-CoV-2 RdRp Gene Assay - Final Complete Laboratory Tests Test 12/30/19 11:40 12/30/19 16:54 12/30/19 20:26 12/31/19 04:00 POC Whole Blood Glucose Pending 316 MG/DL (74-106) H 255 MG/DL (74-106) H White Blood Count 12.0 K/UL (4.8-10.8) H Red Blood Count 4.97 M/UL (4.70-6.10) Hemoglobin 14.7 G/DL (14.2-18.0) Hematocrit 43.4 % (42.0-52.0) Mean Corpuscular Volume 87 FL (80-99) Mean Corpuscular Hemoglobin 29.6 PG (27.0-31.0) Mean Corpuscular Hemoglobin Concent 33.9 G/DL (32.0-36.0) Red Cell Distribution Width 11.6 % (11.6-14.8) Platelet Count 466 K/UL (150-450) H Mean Platelet Volume 5.0 FL (6.5-10.1) L Neutrophils (%) (Auto) 79.7 % (45.0-75.0) H Lymphocytes (%) (Auto) 12.9 % (20.0-45.0) L Monocytes (%) (Auto) 6.8 % (1.0-10.0) Eosinophils (%) (Auto) 0.0 % (0.0-3.0) Basophils (%) (Auto) 0.6 % (0.0-2.0) Sodium Level 134 MMOL/L (136-145) L Potassium Level 4.2 MMOL/L (3.5-5.1) Chloride Level 100 MMOL/L (98-107) Carbon Dioxide Level 26 MMOL/L (21-32) Anion Gap 8 mmol/L (5-15) Blood Urea Nitrogen 18 mg/dL (7-18) Creatinine 0.8 MG/DL (0.55-1.30) Estimat Glomerular Filtration Rate > 60 mL/min (>60) Glucose Level 190 MG/DL (74-106) H Calcium Level 8.6 MG/DL (8.5-10.1) Total Bilirubin 0.6 MG/DL (0.2-1.0) Direct Bilirubin 0.2 MG/DL (0.0-0.3) Aspartate Amino Transf (AST/SGOT) 24 U/L (15-37) Alanine Aminotransferase (ALT/SGPT) 39 U/L (12-78) Alkaline Phosphatase 78 U/L (46-116) Total Protein 6.6 G/DL (6.4-8.2) Albumin 2.3 G/DL (3.4-5.0) L Globulin 4.3 g/dL Albumin/Globulin Ratio 0.5 (1.0-2.7) L Test 12/31/19 05:46 12/31/19 11:07 POC Whole Blood Glucose 174 MG/DL (74-106) H 225 MG/DL (74-106) H Current Medications Medications (Trade) Dose Ordered Sig/Anson Route PRN Reason Start Time Stop Time Status Last Admin Dose Admin Acetaminophen (Tylenol) 650 mg Q4H PRN ORAL Temp 12/29/19 03:45 01/28/20 03:44 Albuterol Sulfate (Proventil MDI) 2 puff EVERY 6 HOURS PRN INH Shortness of Breath 12/29/19 04:00 03/28/20 03:59 12/31/19 09:16 Aspirin (Ecotrin) 81 mg DAILY ORAL 12/29/19 09:00 02/12/20 08:59 12/31/19 09:02 Dexamethasone Sodium Phosphate (Decadron 10mg/ ml Inj) 6 mg DAILY IV 12/29/19 09:00 01/08/20 08:59 12/31/19 09:02 Dextrose (Dextrose 50%) 25 ml Q30M PRN IV Hypoglycemia 12/29/19 09:45 03/28/20 09:44 Dextrose (Dextrose 50%) 50 ml Q30M PRN IV Hypoglycemia 12/29/19 09:45 03/28/20 09:44 Enalapril Maleate (Vasotec) 10 mg EVERY 12 HOURS ORAL 12/29/19 09:00 01/28/20 08:59 12/31/19 09:02 Enoxaparin Sodium (Lovenox) 40 mg DAILY SUBQ 12/29/19 09:00 03/28/20 08:59 12/31/19 09:03 Insulin Aspart (NovoLOG) BEFORE MEALS AND HS SUBQ 12/29/19 11:30 03/28/20 11:29 12/31/19 06:27 Metformin HCl (Glucophage) 500 mg BID@0630,1630 ORAL 12/29/19 06:30 01/28/20 06:29 12/31/19 06:21 Naproxen (Naprosyn) 500 mg TWICE A DAY ORAL 12/29/19 09:00 01/28/20 08:59 12/31/19 09:02 Ondansetron HCl (Zofran) 4 mg Q6H PRN IVP Nausea & Vomiting 12/29/19 03:45 01/28/20 03:44 Remdesivir 100 mg/ Sodium Chloride 250 ml @ 250 mls/hr Q24H IV 12/31/19 17:00 01/03/20 17:59 Tamsulosin HCl (Flomax) 0.4 mg DAILY ORAL 12/29/19 09:00 01/28/20 08:59 12/31/19 09:01 Caren Gant MD Dec 31, 2019 11:19
[2019-12-31 12:00] VITALS: BP 150/78
[2019-12-31 16:00] VITALS: BP 136/75
--- NOTE | 2019-12-31 16:59 | NUR ---
CASE MANAGEMENT: REVIEW SI: COVID-19 PNA . DM T 97.3 HR 77 RR 18 BP 150/78 SAT 90% NC/5L WBC 12.0 GLUCOSE 268 IS: REMDESIVIR IV Q24HR NOVOLOG SUBQ AC+HR LOVENOX SUBQ QD DECADRON IV QD TELEMETRY UNIT STATUS DCP: PATIENT IS FROM HOME
[2019-12-31] MEDS ORDERED: Maintenance Dose:Remdesivir 100mg/NS 230ml x 4 Doses IV SCH ×2 (17:00)
--- NOTE | 2019-12-31 17:02 | NUR ---
*-* INSURANCE *-* UPDATED CLINICALS AND REVIEWS HAVE BEEN FAXED TO: MATEUS WEAVER F:[phone] FLAQUITA ARCINIEGA F:[phone]
--- NOTE | 2019-12-31 19:37 | NUR ---
NURSE HAND-OFF REPORT: Important Events on Shift: n/a Patient Status: full code, stable, on 5L NC Diet: CCHO (med), cardiac Pending Orders: n/a Pending Results/Labs: n/a Pending MD notification: n/a Latest Vital Signs: Temperature 98.4 , Pulse 75 , B/P 136 /75 , Respiratory Rate 18 , O2 SAT 93 , Nasal Cannula, O2 Flow Rate 5.0 . Vital Sign Comment: EKG Rhythm: Sinus Rhythm Rhythm change?: N MD Notified?: N - MD Response: Latest Jade Fall Score: 35 Fall Risk: Medium Risk Safety Measures: Call light Within Reach, Bed Alarm Zone 1, Side Rails Side Rails x2, Bed position Low and Locked. Fall Precautions: Patient Fall Education Report given to SOL Ashraf.
--- NOTE | 2019-12-31 19:52 | NUR ---
NURSE NOTES: Received patient report from Laverne RN and SOL Murdock. Patient shows no signs of distress or pain at the time. Patient is AO x4. IV site is intact and patent. There are no signs of erythema, infiltration, or bleeding. Patient is on 5 L nasal canula and saturating at 92%. He was given an incentive spirometer and showed how to use it and the benefits. Patient did a demonstration correctly. Bed is in the lowest position, call light is within reach, side rails up x3. Will continue to monitor.
[2019-12-31 20:00] VITALS: BP 149/79
--- NOTE | 2019-12-31 20:01 | NUR ---
NURSE NOTES: Dr. Chong called and said patient should be transferred to [facility].
--- NOTE | 2019-12-31 21:30 | NUR ---
NURSE HAND-OFF REPORT: Important Events on Shift:NA Patient Status: Diet: Pending Orders: Pending Results/Labs: Pending MD notification: Latest Vital Signs: Temperature 97.7 , Pulse 70 , B/P 149 /79 , Respiratory Rate 18 , O2 SAT 93 , Nasal Cannula, O2 Flow Rate 5.0 . Vital Sign Comment: NA EKG Rhythm: Sinus Rhythm Rhythm change?: N MD Notified?: N - MD Response: Latest Jade Fall Score: 35 Fall Risk: Medium Risk Safety Measures: Call light Within Reach, Bed Alarm Zone 1, Side Rails Side Rails x2, Bed position Low and Locked. Fall Precautions: Patient Fall Education Report given to .
[2019-12-31] MEDS ORDERED: Albuterol 90mcg Inhaler 8gm INH PRN (22:00)
--- NOTE | 2019-12-31 22:03 | NUR ---
NURSE NOTES: Received report from SOL Ashraf. Pt transferred from tele @ 8086. AAO x 4, on NC 5L, ambulatory. All belongings reviewed. Pt has $248 be and denied to keep in hospital's safe. Pt verbalized understanding that hospital is not liable for the money. IV site intact. Vitals 97.3F, 76HR, 93%, 141/88BP. Pt has SOB when walking and talking. Isolation maintained. Bed locked, lowest position, alarm on, side rails up, call light within reach.
[2020-01-01] VITALS: BP 138/74
[2020-01-01 04:00] VITALS: BP 155/79
[2020-01-01 05:21] LABS: BASOPHILS % (AUTO) 0.5 % (0.0-2.0); EOSINOPHILS % (AUTO) 0.3 % (0.0-3.0); HEMATOCRIT 42.5 % (42.0-52.0); HEMOGLOBIN 14.5 G/DL (14.2-18.0); LYMPHOCYTES % (AUTO) 12.8 % (20.0-45.0); MEAN CORPUSCULAR VOLUME 87 FL (80-99); NEUTROPHILS % (AUTO) 76.4 % (45.0-75.0); PLATELET COUNT 459 K/UL (150-450); RED BLOOD COUNT 4.89 M/UL (4.70-6.10); RED CELL DISTRIBUTION WIDTH 11.5 % (11.6-14.8); WHITE BLOOD COUNT 10.8 K/UL (4.8-10.8)
[2020-01-01 05:43] LABS: ALANINE AMINOTRANSFERASE 49 U/L (12-78); ALBUMIN 2.3 G/DL (3.4-5.0); ALBUMIN/GLOBULIN RATIO 0.5 (1.0-2.7); ALKALINE PHOSPHATASE 74 U/L (46-116); ANION GAP 10 mmol/L (5-15); ASPARTATE AMINO TRANSFERASE 30 U/L (15-37); BILIRUBIN,TOTAL 0.5 MG/DL (0.2-1.0); BLOOD UREA NITROGEN 20 mg/dL (7-18); CALCIUM 8.3 MG/DL (8.5-10.1); CARBON DIOXIDE 23 MMOL/L (21-32); CHLORIDE 101 MMOL/L (98-107); CREATININE 0.8 MG/DL (0.55-1.30); POTASSIUM 4.1 MMOL/L (3.5-5.1); SODIUM 134 MMOL/L (136-145)
--- NOTE | 2020-01-01 06:29 | NUR ---
NURSE HAND-OFF: Important Events on Shift:transferred from tele Patient Status: stable Diet: CCHO medium, Cardiac Pending Orders: N Pending Results/Labs:N Pending MD notification:N Latest Vital Signs: Temperature 97.7 , Pulse 67 , B/P 155 /79 , Respiratory Rate 20 , O2 SAT 93 , Nasal Cannula, O2 Flow Rate 5.0 . Vital Sign Comment: Latest Jade Fall Score: 35 Fall Risk: Medium Risk Safety Measures: Call light Within Reach, Bed Alarm Zone 1, Side Rails Side Rails x2, Bed position Low and Locked. Fall Precautions: Patient Fall Education Addendum: 01/01/20 at 0709 by DIONNE STRICKLAND RN RN NURSE NOTES: Report given to SOL Martins
[2020-01-01] MEDS ORDERED: metFORMIN 500mg tab ORAL SCH (06:30)
[2020-01-01] MEDS ORDERED: NovoLOG Insulin Flexpen SUBQ SCH (06:30)
--- NOTE | 2020-01-01 07:01 | NUR ---
NURSE NOTES: Received patient in bed,awake, having breakfast. Patient is alert and oriented x4. Denies pain or discomfort. Oxygen @4L/min with NC. Bed is in lowest position and locked. Updated room board. Will continue plan of care.
[2020-01-01 08:00] VITALS: BP 142/85
[2020-01-01] MEDS ORDERED: Enoxaparin 40mg Inj SUBQ SCH (09:00)
[2020-01-01] MEDS ORDERED: Aspirin EC 81mg tab ORAL SCH (09:00)
[2020-01-01] MEDS ORDERED: dexAMETHasone 10mg/ml Inj IV SCH (09:00)
[2020-01-01] MEDS ORDERED: Tamsulosin 0.4mg cap ORAL SCH (09:00)
[2020-01-01] MEDS ORDERED: Naproxen 500mg tab ORAL SCH (09:00)
--- NOTE | 2020-01-01 09:21 | NUR ---
NURSE NOTES: Patient is in bed, complains of SOB, RN checked the patient, o2sat is 88-89% with oxygen 4L/min via NC.when patient moves o2sat drops to 81-82%. Albuterol inhaler given tot he patient, and RT was called and RT placed patient on non-rebreather with 15L/min oxygen. O2sat is 96-97% with slightly labored breathing. Dr. Srivastava made his round and relayed patient's condition. Dr. Srivastava wants to transfer patient back to [facility] due to SOB and high flow use. Charge nurse is aware. V/S stable.
--- NOTE | 2020-01-01 09:32 | NUR ---
NURSE NOTES: RN follow up with tele. Per charge nurse ,she is going to call Rn when the room is ready.
--- NOTE | 2020-01-01 10:35 | NUR ---
NURSE NOTES: Transferred patient to room 206-2 and given report to Kenyatta. all belongings were checked with telecom network manager and patient. Patient has be $248.00, no missing items. No skin issue, IV is intact, no s/s of infiltration. Patient did not have BM since 12/29/19. Endorsed to tele nurse to follow up.
[2020-01-01] MEDS ORDERED: Albuterol 90mcg Inhaler 8gm INH PRN (10:45)
--- NOTE | 2020-01-01 10:55 | Infectious Diseases Prog Note ---
Assessment/Plan Assessment/Plan antibiotics remdesivir 12.30.19 - dexamethasone A 1. COVID 19 pneumonia on 15 liters O2, 93 % saturation 2. diabetes mellitus 3. hypertension P 1. continue remdesivir day 3 2. continue dexamethasone day 5 3. continue isolation 4. will follow up cultures Subjective Constitutional: Denies: fever, chills Respiratory: Reports: shortness of breath, dry cough Gastrointestinal/Abdominal: Denies: nausea, vomiting, diarrhea Musculoskeletal: Denies: pain Allergies: Coded Allergies: No Known Allergies (Unverified , 12/28/19) Objective Last 24 Hour Vital Signs Date Time Temp Pulse Resp B/P (MAP) Pulse Ox O2 Delivery O2 Flow Rate FiO2 01/01/20 09:00 Non-Rebreather 15.0 01/01/20 08:37 142/85 01/01/20 08:00 97.2 77 21 142/85 (104) 93 01/01/20 04:00 97.7 67 20 155/79 (104) 93 01/01/20 00:00 98.3 66 21 138/74 (95) 94 12/31/19 21:00 Nasal Cannula 5.0 12/31/19 20:36 149/79 12/31/19 20:00 97.7 70 18 149/79 (102) 93 12/31/19 17:42 98.4 12/31/19 16:00 98.4 75 18 136/75 (95) 93 12/31/19 16:00 65 12/31/19 12:45 72 12/31/19 12:00 97.3 77 20 150/78 (102) 90 Height (Feet): 5 Height (Inches): 6.00 Weight (Pounds): 188 Laboratory Tests Test 12/31/19 11:07 12/31/19 15:57 12/31/19 20:14 01/01/20 04:00 POC Whole Blood Glucose 225 MG/DL (74-106) H 268 MG/DL (74-106) H 300 MG/DL (74-106) H White Blood Count 10.8 K/UL (4.8-10.8) Red Blood Count 4.89 M/UL (4.70-6.10) Hemoglobin 14.5 G/DL (14.2-18.0) Hematocrit 42.5 % (42.0-52.0) Mean Corpuscular Volume 87 FL (80-99) Mean Corpuscular Hemoglobin 29.7 PG (27.0-31.0) Mean Corpuscular Hemoglobin Concent 34.1 G/DL (32.0-36.0) Red Cell Distribution Width 11.5 % (11.6-14.8) L Platelet Count 459 K/UL (150-450) H Mean Platelet Volume 5.0 FL (6.5-10.1) L Neutrophils (%) (Auto) 76.4 % (45.0-75.0) H Lymphocytes (%) (Auto) 12.8 % (20.0-45.0) L Monocytes (%) (Auto) 10.0 % (1.0-10.0) Eosinophils (%) (Auto) 0.3 % (0.0-3.0) Basophils (%) (Auto) 0.5 % (0.0-2.0) Sodium Level 134 MMOL/L (136-145) L Potassium Level 4.1 MMOL/L (3.5-5.1) Chloride Level 101 MMOL/L (98-107) Carbon Dioxide Level 23 MMOL/L (21-32) Anion Gap 10 mmol/L (5-15) Blood Urea Nitrogen 20 mg/dL (7-18) H Creatinine 0.8 MG/DL (0.55-1.30) Estimat Glomerular Filtration Rate > 60 mL/min (>60) Glucose Level 208 MG/DL (74-106) H Calcium Level 8.3 MG/DL (8.5-10.1) L Total Bilirubin 0.5 MG/DL (0.2-1.0) Direct Bilirubin 0.2 MG/DL (0.0-0.3) Aspartate Amino Transf (AST/SGOT) 30 U/L (15-37) Alanine Aminotransferase (ALT/SGPT) 49 U/L (12-78) Alkaline Phosphatase 74 U/L (46-116) Total Protein 6.6 G/DL (6.4-8.2) Albumin 2.3 G/DL (3.4-5.0) L Globulin 4.3 g/dL Albumin/Globulin Ratio 0.5 (1.0-2.7) L Test 01/01/20 05:26 POC Whole Blood Glucose Pending Current Medications Medications (Trade) Dose Ordered Sig/Anson Route PRN Reason Start Time Stop Time Status Last Admin Dose Admin Acetaminophen (Tylenol) 650 mg Q4H PRN ORAL t>100.5 01/01/20 10:44 01/31/20 10:43 Albuterol Sulfate (Proventil MDI) 2 puff Q6H PRN INH Shortness of Breath 01/01/20 10:45 03/31/20 10:44 Aspirin (Ecotrin) 81 mg DAILY ORAL 01/02/20 09:00 02/12/20 08:59 Dexamethasone Sodium Phosphate (Decadron 10mg/ ml Inj) 6 mg DAILY IV 01/02/20 09:00 01/07/20 09:01 Dextrose (Dextrose 50%) 25 ml Q30M PRN IV Hypoglycemia 01/01/20 10:45 03/28/20 09:44 Dextrose (Dextrose 50%) 50 ml Q30M PRN IV Hypoglycemia 01/01/20 10:45 03/28/20 09:44 Enalapril Maleate (Vasotec) 10 mg EVERY 12 HOURS ORAL 01/01/20 21:00 01/28/20 08:59 Enoxaparin Sodium (Lovenox) 40 mg DAILY SUBQ 01/02/20 09:00 03/28/20 08:59 Insulin Aspart (NovoLOG) BEFORE MEALS AND HS SUBQ 01/01/20 11:30 03/28/20 11:29 Metformin HCl (Glucophage) 500 mg BID@0630,1630 ORAL 01/01/20 16:30 01/28/20 06:29 Naproxen (Naprosyn) 500 mg TWICE A DAY ORAL 01/01/20 18:00 01/28/20 08:59 Ondansetron HCl (Zofran) 4 mg Q6H PRN IVP Nausea & Vomiting 01/01/20 10:46 01/31/20 10:45 Remdesivir 100 mg/ Sodium Chloride 250 ml @ 250 mls/hr Q24H IV 01/01/20 17:00 01/03/20 17:59 Tamsulosin HCl (Flomax) 0.4 mg DAILY ORAL 01/02/20 09:00 01/28/20 08:59 Caren Gant MD Jan 01, 2020 10:55
[2020-01-01] MEDS: NovoLOG Insulin Flexpen SUBQ SCH ×3 (11:30→21:19)
[2020-01-01 12:00] VITALS: BP 155/70
--- NOTE | 2020-01-01 12:23 | General Progress Note ---
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 Monitor labs and imaging upgrade to tele impression, plan, and exam edited and reviewed in detail care discussed with RN Subjective Allergies: Coded Allergies: No Known Allergies (Unverified , 12/28/19) Subjective d/w RN again back to 100% otherwise meds noted Xray worse Objective Last 24 Hour Vital Signs Date Time Temp Pulse Resp B/P (MAP) Pulse Ox O2 Delivery O2 Flow Rate FiO2 01/01/20 12:00 97.9 82 20 155/70 (98) 95 01/01/20 09:00 Non-Rebreather 15.0 01/01/20 08:37 142/85 01/01/20 08:00 97.2 77 21 142/85 (104) 93 01/01/20 04:00 97.7 67 20 155/79 (104) 93 01/01/20 00:00 98.3 66 21 138/74 (95) 94 12/31/19 21:00 Nasal Cannula 5.0 12/31/19 20:36 149/79 12/31/19 20:00 97.7 70 18 149/79 (102) 93 12/31/19 17:42 98.4 12/31/19 16:00 98.4 75 18 136/75 (95) 93 12/31/19 16:00 65 12/31/19 12:45 72 Intake and Output 12/31/19 01/01/20 19:00 07:00 Intake Total 500 ml Output Total 800 ml 1100 ml Balance -300 ml -1100 ml Intake Oral 500 ml Output Urine Total 800 ml 1100 ml # Voids 3 Laboratory Tests 12/31/19 15:57: POC Whole Blood Glucose 268H 12/31/19 20:14: POC Whole Blood Glucose 300H 01/01/20 04:00: White Blood Count 10.8, Red Blood Count 4.89, Hemoglobin 14.5, Hematocrit 42.5, Mean Corpuscular Volume 87, Mean Corpuscular Hemoglobin 29.7, Mean Corpuscular Hemoglobin Concent 34.1, Red Cell Distribution Width 11.5L, Platelet Count 459H , Mean Platelet Volume 5.0L, Neutrophils (%) (Auto) 76.4H, Lymphocytes (%) (Auto ) 12.8L, Monocytes (%) (Auto) 10.0, Eosinophils (%) (Auto) 0.3, Basophils (%) ( Auto) 0.5, Sodium Level 134L, Potassium Level 4.1, Chloride Level 101, Carbon Dioxide Level 23, Anion Gap 10, Blood Urea Nitrogen 20H, Creatinine 0.8, Estimat Glomerular Filtration Rate > 60, Glucose Level 208H, Calcium Level 8.3L , Total Bilirubin 0.5, Direct Bilirubin 0.2, Aspartate Amino Transf (AST/SGOT) 30, Alanine Aminotransferase (ALT/SGPT) 49, Alkaline Phosphatase 74, Total Protein 6.6, Albumin 2.3L, Globulin 4.3, Albumin/Globulin Ratio 0.5L 01/01/20 05:26: POC Whole Blood Glucose [Pending] Height (Feet): 5 Height (Inches): 6.00 Weight (Pounds): 188 Objective deferred due to COVID+ Taj Srivastava MD Jan 01, 2020 12:23
--- NOTE | 2020-01-01 13:56 | NUR ---
CASE MANAGEMENT:REVIEW SI;COVID PNEUMONIA. HYPOXIA. 98.3 82 21 155/79 93% 15L NRB NA 134 BUN 20 BG 208 ALB 2.3 IS;DECADRON IV QD REMDESIVIR IV Q24 LOVENOX PO QD VASOTEC PO Q12 FLOMAX PO QD TRANSFERRED FROM MED SURG TO TELE 01/01/20 @ 1035 TELE STATUS DCP;PATIENT IS FROM HOME
--- NOTE | 2020-01-01 14:06 | NUR ---
*-* INSURANCE *-* UPDATED CLINICALS AND REVIEWS HAVE BEEN FAXED TO: MATEUS WEAVER F:[phone] FLAQUITA ARCINIEGA F:[phone]
[2020-01-01] MEDS ORDERED: Milk of Magnesia 30ml Ud ORAL PRN (14:15)
[2020-01-01] MEDS ORDERED: Bisacodyl EC 5mg tab ORAL PRN (14:15)
[2020-01-01 16:00] VITALS: BP 152/93
[2020-01-01] MEDS: metFORMIN 500mg tab ORAL SCH (16:30)
[2020-01-01] MEDS ORDERED: Remdesivir 100mg 100 MG in NS 230 ML IV SCH (17:00)
[2020-01-01] MEDS ORDERED: IV Preparation Fee MISC PRN ×2 (17:00)
[2020-01-01] MEDS: Naproxen 500mg tab ORAL SCH (17:14)
[2020-01-01] MEDS: Remdesivir 100mg 100 MG in NS 230 ML IV SCH (17:14)
--- NOTE | 2020-01-01 19:44 | NUR ---
NURSE HAND-OFF REPORT: Important Events on Shift: O2 sat goes to 80s when pt is moving. Patient Status: stable Diet: CCHO (med), cardiac Pending Orders: Pending Results/Labs: Pending MD notification: Latest Vital Signs: Temperature 97.7 , Pulse 82 , B/P 152 /93 , Respiratory Rate 22 , O2 SAT 97 , Non-Rebreather, O2 Flow Rate 15.0 . Vital Sign Comment: EKG Rhythm: Sinus Rhythm Rhythm change?: N MD Notified?: N - MD Response: Latest Jade Fall Score: 35 Fall Risk: Medium Risk Safety Measures: Call light Within Reach, Bed Alarm Zone 1, Side Rails Side Rails x2, Bed position Low and Locked. Fall Precautions: Patient Fall Education Report given to SOL Caro
--- NOTE | 2020-01-01 19:45 | NUR ---
NURSE NOTES: Got report from Kenyatta HORTON. Pt in stable condition. Denies any pain. Denies any n/v or SOB. Pt is Covid+. Pt is fully oriented and ambulatory with steady gait. 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 Pt is on 15L Non-Rebreather mask sating 95%. Pt is on CCHO Medium Cardiac diet takes pills whole. Pt is on ACHS blood glucose checks. Skin intact. Pt has R AC 20g saline locked. Pt resting in bed comfortably. Bed in low and locked position, call light within reach, bedside table within reach. Continue to monitor.
[2020-01-01 20:00] VITALS: BP 157/88
--- NOTE | 2020-01-01 22:00 | NUR ---
NURSE NOTES: Notified Dr. Srivastava about Ca:8.3 Na:134. Awaiting callback. Continue to monitor.
[2020-01-02] VITALS (7 sets, daily range): BP systolic 144–158; BP diastolic 75–80
[2020-01-02] MEDS: NovoLOG Insulin Flexpen SUBQ SCH ×4 (06:30→21:19)
[2020-01-02] MEDS: metFORMIN 500mg tab ORAL SCH ×2 (06:31→17:25)
[2020-01-02 06:43] LABS: BASOPHILS % (AUTO) 0.8 % (0.0-2.0); EOSINOPHILS % (AUTO) 0.8 % (0.0-3.0); HEMATOCRIT 47.5 % (42.0-52.0); HEMOGLOBIN 15.9 G/DL (14.2-18.0); LYMPHOCYTES % (AUTO) 19.5 % (20.0-45.0); MEAN CORPUSCULAR VOLUME 89 FL (80-99); MONOCYTES % (AUTO) 8.9 % (1.0-10.0); NEUTROPHILS % (AUTO) 70.1 % (45.0-75.0); PLATELET COUNT 553 K/UL (150-450); RED BLOOD COUNT 5.37 M/UL (4.70-6.10); RED CELL DISTRIBUTION WIDTH 12.6 % (11.6-14.8); WHITE BLOOD COUNT 10.7 K/UL (4.8-10.8)
[2020-01-02 07:08] LABS: ALANINE AMINOTRANSFERASE 46 U/L (12-78); ALBUMIN 2.7 G/DL (3.4-5.0); ALBUMIN/GLOBULIN RATIO 0.6 (1.0-2.7); ALKALINE PHOSPHATASE 80 U/L (46-116); ANION GAP 7 mmol/L (5-15); ASPARTATE AMINO TRANSFERASE 24 U/L (15-37); BILIRUBIN,DIRECT 0.2 MG/DL (0.0-0.3); BILIRUBIN,TOTAL 0.7 MG/DL (0.2-1.0); BLOOD UREA NITROGEN 20 mg/dL (7-18); CALCIUM 9.2 MG/DL (8.5-10.1); CARBON DIOXIDE 27 MMOL/L (21-32); CHLORIDE 98 MMOL/L (98-107); CREATININE 0.8 MG/DL (0.55-1.30); POTASSIUM 4.4 MMOL/L (3.5-5.1); SODIUM 132 MMOL/L (136-145)
--- NOTE | 2020-01-02 07:39 | NUR ---
NURSE HAND-OFF REPORT: Important Events on Shift:[] Patient Status: [Stable] Diet: [CCHO Medium and Cardiac] Pending Orders: [] Pending Results/Labs:[8 AM Labs] Pending MD notification:[] Latest Vital Signs: Temperature 97.5 , Pulse 68 , B/P 150 /80 , Respiratory Rate 19 , O2 SAT 95 , Non-Rebreather, O2 Flow Rate 15.0 . Vital Sign Comment: [] EKG Rhythm: Sinus Rhythm Rhythm change?: N MD Notified?: N - MD Response: Latest Jade Fall Score: 35 Fall Risk: Medium Risk Safety Measures: Call light Within Reach, Bed Alarm Zone 1, Side Rails Side Rails x2, Bed position Low and Locked. Fall Precautions: Patient Fall Education Report given to [Nora HORTON].
--- NOTE | 2020-01-02 07:40 | NUR ---
NURSE NOTES: Received report from SOL Henderson. Addendum: 01/02/20 at 0757 by Neeru Dennison RN NURSE NOTES: Received report from SOL Oneill. Patient AAO x4, in high ware's eating breakfast. C/O mild SOB on NRB at 15 L. Continuous SPO2 at 94%. No cyanosis. IV flushed patent, no redness. Fall precautions in place.
[2020-01-02] MEDS: Aspirin EC 81mg tab ORAL SCH (08:58)
[2020-01-02] MEDS: dexAMETHasone 10mg/ml Inj IV SCH (08:58)
[2020-01-02] MEDS: Tamsulosin 0.4mg cap ORAL SCH (08:58)
[2020-01-02] MEDS: Naproxen 500mg tab ORAL SCH ×2 (08:59→17:26)
[2020-01-02] MEDS: Enoxaparin 40mg Inj SUBQ SCH (09:00)
--- NOTE | 2020-01-02 10:40 | Infectious Diseases Prog Note ---
Assessment/Plan Assessment/Plan A 1. COVID 19 pneumonia 2. Diabetes mellitus with Hyperglycemia 3. Hypertension 4. Hypoxemia P 1. continue remdesivir day 4 2. continue dexamethasone day 6 3. continue isolation 4. will follow up cultures Subjective ROS Limited/Unobtainable: No Constitutional: Reports: no symptoms Respiratory: Reports: shortness of breath, productive cough Cardiovascular: Reports: dyspnea on exertion Gastrointestinal/Abdominal: Reports: no symptoms Genitourinary: Reports: no symptoms Allergies: Coded Allergies: No Known Allergies (Unverified , 12/28/19) Objective Last 24 Hour Vital Signs Date Time Temp Pulse Resp B/P (MAP) Pulse Ox O2 Delivery O2 Flow Rate FiO2 01/02/20 08:59 158/79 01/02/20 08:00 82 01/02/20 08:00 97.7 80 20 158/79 (105) 96 01/02/20 08:00 Non-Rebreather 15.0 01/02/20 04:00 55 01/02/20 04:00 97.5 68 19 150/80 (103) 95 01/02/20 00:00 60 01/02/20 00:00 97.9 64 18 147/78 (101) 97 01/01/20 21:43 97.7 01/01/20 21:08 157/88 01/01/20 21:00 Non-Rebreather 15.0 01/01/20 20:00 75 01/01/20 20:00 99.9 78 20 157/88 (111) 95 01/01/20 16:00 97.7 87 22 152/93 (112) 97 01/01/20 16:00 82 01/01/20 12:00 97.9 82 20 155/70 (98) 95 01/01/20 11:43 81 Height (Feet): 5 Height (Inches): 6.00 Weight (Pounds): 188 HEENT: mucous membranes moist Respiratory/Chest: lungs clear, other - Oxygen by rebreathing mask Cardiovascular: normal rate Abdomen: soft, non tender Extremities: no edema Neurologic/Psychiatric: alert, oriented x 3, responsive Laboratory Tests Test 01/02/20 05:42 White Blood Count 10.7 K/UL (4.8-10.8) Red Blood Count 5.37 M/UL (4.70-6.10) Hemoglobin 15.9 G/DL (14.2-18.0) Hematocrit 47.5 % (42.0-52.0) Mean Corpuscular Volume 89 FL (80-99) Mean Corpuscular Hemoglobin 29.6 PG (27.0-31.0) Mean Corpuscular Hemoglobin Concent 33.4 G/DL (32.0-36.0) Red Cell Distribution Width 12.6 % (11.6-14.8) Platelet Count 553 K/UL (150-450) H Mean Platelet Volume 5.3 FL (6.5-10.1) L Neutrophils (%) (Auto) 70.1 % (45.0-75.0) Lymphocytes (%) (Auto) 19.5 % (20.0-45.0) L Monocytes (%) (Auto) 8.9 % (1.0-10.0) Eosinophils (%) (Auto) 0.8 % (0.0-3.0) Basophils (%) (Auto) 0.8 % (0.0-2.0) Sodium Level 132 MMOL/L (136-145) L Potassium Level 4.4 MMOL/L (3.5-5.1) Chloride Level 98 MMOL/L (98-107) Carbon Dioxide Level 27 MMOL/L (21-32) Anion Gap 7 mmol/L (5-15) Blood Urea Nitrogen 20 mg/dL (7-18) H Creatinine 0.8 MG/DL (0.55-1.30) Estimat Glomerular Filtration Rate > 60 mL/min (>60) Glucose Level 151 MG/DL (74-106) H Calcium Level 9.2 MG/DL (8.5-10.1) Total Bilirubin 0.7 MG/DL (0.2-1.0) Direct Bilirubin 0.2 MG/DL (0.0-0.3) Aspartate Amino Transf (AST/SGOT) 24 U/L (15-37) Alanine Aminotransferase (ALT/SGPT) 46 U/L (12-78) Alkaline Phosphatase 80 U/L (46-116) Total Protein 7.6 G/DL (6.4-8.2) Albumin 2.7 G/DL (3.4-5.0) L Globulin 4.9 g/dL Albumin/Globulin Ratio 0.6 (1.0-2.7) L Current Medications Medications (Trade) Dose Ordered Sig/Anson Route PRN Reason Start Time Stop Time Status Last Admin Dose Admin Acetaminophen (Tylenol) 650 mg Q4H PRN ORAL t>100.5 01/01/20 10:44 01/31/20 10:43 01/01/20 21:08 Albuterol Sulfate (Proventil MDI) 2 puff Q6H PRN INH Shortness of Breath 01/01/20 10:45 03/31/20 10:44 Aspirin (Ecotrin) 81 mg DAILY ORAL 01/02/20 09:00 02/12/20 08:59 01/02/20 08:58 Bisacodyl (Dulcolax) 10 mg DAILYPRN PRN ORAL Constipation 01/01/20 14:15 03/31/20 14:14 Dexamethasone Sodium Phosphate (Decadron 10mg/ ml Inj) 6 mg DAILY IV 01/02/20 09:00 01/07/20 09:01 01/02/20 08:58 Dextrose (Dextrose 50%) 25 ml Q30M PRN IV Hypoglycemia 01/01/20 10:45 03/28/20 09:44 Dextrose (Dextrose 50%) 50 ml Q30M PRN IV Hypoglycemia 01/01/20 10:45 03/28/20 09:44 Enalapril Maleate (Vasotec) 10 mg EVERY 12 HOURS ORAL 01/01/20 21:00 01/28/20 08:59 01/02/20 08:59 Enoxaparin Sodium (Lovenox) 40 mg DAILY SUBQ 01/02/20 09:00 03/28/20 08:59 01/02/20 09:00 Insulin Aspart (NovoLOG) BEFORE MEALS AND HS SUBQ 01/01/20 11:30 03/28/20 11:29 01/01/20 21:19 Magnesium Hydroxide (Mom) 30 ml DAILYPRN PRN ORAL Constipation 01/01/20 14:15 01/31/20 14:14 01/01/20 17:16 Metformin HCl (Glucophage) 500 mg BID@0630,1630 ORAL 01/01/20 16:30 01/28/20 06:29 01/02/20 06:31 Naproxen (Naprosyn) 500 mg TWICE A DAY ORAL 01/01/20 18:00 01/28/20 08:59 01/02/20 08:59 Ondansetron HCl (Zofran) 4 mg Q6H PRN IVP Nausea & Vomiting 01/01/20 10:46 01/31/20 10:45 Remdesivir 100 mg/ Sodium Chloride 250 ml @ 250 mls/hr Q24H IV 01/01/20 17:00 01/03/20 17:59 01/01/20 17:14 Tamsulosin HCl (Flomax) 0.4 mg DAILY ORAL 01/02/20 09:00 01/28/20 08:59 01/02/20 08:58 Vincenzo Jaquez MD Jan 02, 2020 10:40
--- NOTE | 2020-01-02 14:29 | NUR ---
CASE MANAGEMENT:REVIEW 01/02/20 SI: COVID PNEUMONIA 98.6 74 22 145/75 96% ON 15L NON REBREATHER NA-132 GLUCOSE+151 IS: IV REMDESIVIR Q24 (#2/5) IV DECADRON Q24HRS LOVENOX SQ QD ASA PO QD : TELEMETRY STATUS
--- NOTE | 2020-01-02 14:36 | NUR ---
INSURANCE FAXED CLINICALS AND REVIEW TO FLAQUITA ARCINIEGA T: [phone] F: [phone] REF #[id number] AND [employer] F: [phone]
--- NOTE | 2020-01-02 16:29 | NUR ---
NURSE NOTES: Updated MD Srivastava on NA/PLT. No new orders.
[2020-01-02] MEDS: Remdesivir 100mg 100 MG in NS 230 ML IV SCH (17:29)
--- NOTE | 2020-01-02 17:36 | General Progress Note ---
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 Monitor labs and imaging monitor in tele impression, plan, and exam edited and reviewed in detail care discussed with RN Subjective Allergies: Coded Allergies: No Known Allergies (Unverified , 12/28/19) Subjective d/w RN on nonrebreather otherwise meds noted Xray Objective Last 24 Hour Vital Signs Date Time Temp Pulse Resp B/P (MAP) Pulse Ox O2 Delivery O2 Flow Rate FiO2 01/02/20 16:00 98.0 78 20 157/78 (104) 96 01/02/20 16:00 72 01/02/20 12:00 98.6 74 22 145/75 (98) 95 01/02/20 12:00 77 01/02/20 08:59 158/79 01/02/20 08:00 82 01/02/20 08:00 97.7 80 20 158/79 (105) 96 01/02/20 08:00 Non-Rebreather 15.0 01/02/20 04:00 55 01/02/20 04:00 97.5 68 19 150/80 (103) 95 01/02/20 00:00 60 01/02/20 00:00 97.9 64 18 147/78 (101) 97 01/01/20 21:43 97.7 01/01/20 21:08 157/88 01/01/20 21:00 Non-Rebreather 15.0 01/01/20 20:00 75 01/01/20 20:00 99.9 78 20 157/88 (111) 95 Intake and Output 01/01/20 01/02/20 19:00 07:00 Intake Total 800 ml 1000 ml Output Total 500 ml Balance 800 ml 500 ml Intake Oral 800 ml Other 1000 ml Output Urine Total 500 ml # Voids 4 1 # Bowel Movements 1 Laboratory Tests 01/02/20 05:42: White Blood Count 10.7, Red Blood Count 5.37, Hemoglobin 15.9, Hematocrit 47.5, Mean Corpuscular Volume 89, Mean Corpuscular Hemoglobin 29.6, Mean Corpuscular Hemoglobin Concent 33.4, Red Cell Distribution Width 12.6, Platelet Count 553H, Mean Platelet Volume 5.3L, Neutrophils (%) (Auto) 70.1, Lymphocytes (%) (Auto) 19.5L, Monocytes (%) (Auto) 8.9, Eosinophils (%) (Auto) 0.8, Basophils (%) (Auto ) 0.8, Sodium Level 132L, Potassium Level 4.4, Chloride Level 98, Carbon Dioxide Level 27, Anion Gap 7, Blood Urea Nitrogen 20H, Creatinine 0.8, Estimat Glomerular Filtration Rate > 60, Glucose Level 151H, Calcium Level 9.2, Total Bilirubin 0.7, Direct Bilirubin 0.2, Aspartate Amino Transf (AST/SGOT) 24, Alanine Aminotransferase (ALT/SGPT) 46, Alkaline Phosphatase 80, Total Protein 7.6, Albumin 2.7L, Globulin 4.9, Albumin/Globulin Ratio 0.6L 01/02/20 11:59: POC Whole Blood Glucose 272H 01/02/20 17:16: POC Whole Blood Glucose 330H Height (Feet): 5 Height (Inches): 6.00 Weight (Pounds): 188 Objective deferred due to DEANNA+ Taj Srivastava MD Jan 02, 2020 17:36
--- NOTE | 2020-01-02 19:44 | NUR ---
NURSE HAND-OFF REPORT: Important Events on Shift: N/A Patient Status: Stable Diet: CHCHO Medium/Cardiac Pending Orders: Venous Duplex Pending Results/Labs: N/A Pending MD notification: N/A Latest Vital Signs: Temperature 98.0 , Pulse 72 , B/P 157 /78 , Respiratory Rate 20 , O2 SAT 96 , Non-Rebreather, O2 Flow Rate 15.0 . Vital Sign Comment: N/A EKG Rhythm: Sinus Rhythm Rhythm change?: N MD Notified?: N - MD Response: Latest Jade Fall Score: 35 Fall Risk: Medium Risk Safety Measures: Call light Within Reach, Bed Alarm Zone 1, Side Rails Side Rails x2, Bed position Low and Locked. Fall Precautions: Patient Fall Education Report given to SOL Reyes.
--- NOTE | 2020-01-02 19:45 | NUR ---
NURSE NOTES: Patient received from Nora HORTON. Patient in stable condition. Alert and oriented x4. Saturating well on Non rebreather mask @ 15L/min. Vital signs stable. No s/s of distress and no c/o pain. IV site leaking on Right AC 20G SL leaking and discontinued. Will insert new iv this shift. Bed is low and locked. Bed side table and call light within reach. Will continue plan of care.
--- NOTE | 2020-01-03 02:30 | NUR ---
NURSE NOTES: Called RT Gian for titration of non rebreather mask. Patient is now on Venturi mask @ 14L 55% fio2 saturating @ 94%. Will continue to monitor closely.
[2020-01-03 04:00] VITALS: BP 131/77
[2020-01-03] MEDS: metFORMIN 500mg tab ORAL SCH ×2 (06:05→16:43)
[2020-01-03] MEDS: NovoLOG Insulin Flexpen SUBQ SCH ×4 (06:16→21:11)
--- NOTE | 2020-01-03 07:22 | NUR ---
NURSE HAND-OFF REPORT: Important Events on Shift:[Titrated from 15L of Non Rebreather mask to 14L Venturi Mask 55% FiO2] Patient Status: [Stable] Diet: [CCHO Medium & Cardiac Diet] Pending Orders: [Venous Duplex, CXR] Pending Results/Labs:[CBC, CMP, Bilirubin Direct] Pending MD notification:[] Latest Vital Signs: Temperature 97.5 , Pulse 55 , B/P 131 /77 , Respiratory Rate 17 , O2 SAT 94 , Venturi Mask, O2 Flow Rate 14.0 . Vital Sign Comment: [] EKG Rhythm: Sinus Rhythm Rhythm change?: N MD Notified?: N - MD Response: Latest Jade Fall Score: 35 Fall Risk: Medium Risk Safety Measures: Call light Within Reach, Bed Alarm Zone 1, Side Rails Side Rails x2, Bed position Low and Locked. Fall Precautions: Patient Fall Education Report given to [Nora].
--- NOTE | 2020-01-03 07:49 | NUR ---
NURSE NOTES: Received report from SOL Reyes. Patient AAO x4. No acute distress. Pt. complains of mild SOB with venturi mask at 14L/55% FiO2. SPO2 95%. Radial pulses palpable, equal. R hand 22g saline locked, no redness or infiltration. Fall precautions in place.
[2020-01-03 08:00] VITALS: BP 130/72
--- NOTE | 2020-01-03 08:21 | NUR ---
CASE MANAGEMENT:REVIEW 01/03/20 SI: COVID PNEUMONIA 97.5 55 17 131/77 94% ON 14L NON REBREATHER GLUCOSE+196 IS: IV REMDESIVIR Q24 (#5/5) STARTED ON 12/30/19 IV DECADRON Q24HRS LOVENOX SQ QD FLOMAX PO QD VASOTEC PO Q12 NAPROSYN PO BID METFORMIN PO BID ASA PO QD : TELEMETRY STATUS DCP: PATIENT IS FROM HOME PLAN: TITRATE OXYGEN TOLERATED CONTINUE ANTIVIRAL AND STEROID
--- NOTE | 2020-01-03 08:33 | General Progress Note ---
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 Monitor labs and imaging monitor in tele still ill impression, plan, and exam edited and reviewed in detail care discussed with RN Subjective Allergies: Coded Allergies: No Known Allergies (Unverified , 12/28/19) Subjective d/w RN on nonrebreather otherwise same daughter aware meds noted Objective Last 24 Hour Vital Signs Date Time Temp Pulse Resp B/P (MAP) Pulse Ox O2 Delivery O2 Flow Rate FiO2 01/03/20 08:00 98.8 81 22 130/72 (91) 96 01/03/20 07:55 Venturi Mask 14.0 01/03/20 04:00 97.5 55 17 131/77 (95) 94 01/03/20 03:55 60 01/03/20 03:00 94 Venturi Mask 14.0 55 01/03/20 00:00 68 01/02/20 23:58 97.5 66 20 144/78 (100) 96 01/02/20 21:00 Venturi Mask 14.0 01/02/20 20:41 158/77 01/02/20 20:00 97.7 74 20 158/77 (104) 97 01/02/20 20:00 68 01/02/20 16:00 98.0 78 20 157/78 (104) 96 01/02/20 16:00 72 01/02/20 12:00 98.6 74 22 145/75 (98) 95 01/02/20 12:00 77 01/02/20 08:59 158/79 Intake and Output 01/02/20 01/03/20 19:00 07:00 Intake Total 1160 ml Output Total 2400 ml 400 ml Balance -1240 ml -400 ml Intake Oral 1160 ml Output Urine Total 2400 ml 400 ml # Voids 3 Laboratory Tests 01/02/20 11:59: POC Whole Blood Glucose 272H 01/02/20 17:16: POC Whole Blood Glucose 330H 01/02/20 20:05: POC Whole Blood Glucose 273H 01/03/20 04:52: POC Whole Blood Glucose 196H Height (Feet): 5 Height (Inches): 6.00 Weight (Pounds): 187 Objective deferred due to COVID+ Taj Srivastava MD Jan 03, 2020 08:33
--- NOTE | 2020-01-03 08:36 | NUR ---
INSURANCE FAXED CLINICALS AND REVIEW TO FLAQUITA ARCINIEGA T: [phone] F: [phone] REF #[id number] AND [employer] F: [phone]
[2020-01-03] MEDS: Aspirin EC 81mg tab ORAL SCH (08:39)
[2020-01-03] MEDS: Naproxen 500mg tab ORAL SCH ×2 (08:40→17:09)
[2020-01-03] MEDS: Tamsulosin 0.4mg cap ORAL SCH (08:40)
[2020-01-03] MEDS: dexAMETHasone 10mg/ml Inj IV SCH (08:40)
[2020-01-03] MEDS: Enoxaparin 40mg Inj SUBQ SCH (08:41)
[2020-01-03 09:07] LABS: BASOPHILS % (AUTO) 0.4 % (0.0-2.0); EOSINOPHILS % (AUTO) 1.3 % (0.0-3.0); HEMATOCRIT 48.1 % (42.0-52.0); HEMOGLOBIN 15.9 G/DL (14.2-18.0); LYMPHOCYTES % (AUTO) 17.5 % (20.0-45.0); MEAN CORPUSCULAR VOLUME 88 FL (80-99); MONOCYTES % (AUTO) 9.2 % (1.0-10.0); NEUTROPHILS % (AUTO) 71.6 % (45.0-75.0); PLATELET COUNT 615 K/UL (150-450); RED BLOOD COUNT 5.48 M/UL (4.70-6.10); RED CELL DISTRIBUTION WIDTH 11.8 % (11.6-14.8); WHITE BLOOD COUNT 10.6 K/UL (4.8-10.8)
[2020-01-03 09:45] LABS: ALANINE AMINOTRANSFERASE 46 U/L (12-78); ALBUMIN 2.5 G/DL (3.4-5.0); ALBUMIN/GLOBULIN RATIO 0.5 (1.0-2.7); ALKALINE PHOSPHATASE 70 U/L (46-116); ANION GAP 5 mmol/L (5-15); ASPARTATE AMINO TRANSFERASE 21 U/L (15-37); BILIRUBIN,DIRECT 0.2 MG/DL (0.0-0.3); BILIRUBIN,TOTAL 0.6 MG/DL (0.2-1.0); BLOOD UREA NITROGEN 23 mg/dL (7-18); CARBON DIOXIDE 28 MMOL/L (21-32); CHLORIDE 98 MMOL/L (98-107); CREATININE 0.9 MG/DL (0.55-1.30); POTASSIUM 4.5 MMOL/L (3.5-5.1); SODIUM 131 MMOL/L (136-145)
--- NOTE | 2020-01-03 10:28 | Infectious Diseases Prog Note ---
Assessment/Plan Assessment/Plan antibiotics remdesivir 12.30.19 - dexamethasone A 1. COVID 19 pneumonia on 14 liters O2, 96 % saturation 2. diabetes mellitus 3. hypertension P 1. complete remdesivir day 5 2. continue dexamethasone day 7 3. continue isolation 4. will follow up cultures Subjective Constitutional: Denies: fever, chills Respiratory: Reports: shortness of breath, dry cough - decreased Gastrointestinal/Abdominal: Denies: nausea, vomiting, diarrhea Musculoskeletal: Denies: pain Allergies: Coded Allergies: No Known Allergies (Unverified , 12/28/19) Objective Last 24 Hour Vital Signs Date Time Temp Pulse Resp B/P (MAP) Pulse Ox O2 Delivery O2 Flow Rate FiO2 01/03/20 08:40 130/72 01/03/20 08:00 98.8 81 22 130/72 (91) 96 01/03/20 08:00 78 01/03/20 07:55 Venturi Mask 14.0 01/03/20 04:00 97.5 55 17 131/77 (95) 94 01/03/20 03:55 60 01/03/20 03:00 94 Venturi Mask 14.0 55 01/03/20 00:00 68 01/02/20 23:58 97.5 66 20 144/78 (100) 96 01/02/20 21:00 Venturi Mask 14.0 01/02/20 20:41 158/77 01/02/20 20:00 97.7 74 20 158/77 (104) 97 01/02/20 20:00 68 01/02/20 16:00 98.0 78 20 157/78 (104) 96 01/02/20 16:00 72 01/02/20 12:00 98.6 74 22 145/75 (98) 95 01/02/20 12:00 77 Height (Feet): 5 Height (Inches): 6.00 Weight (Pounds): 187 Laboratory Tests Test 01/02/20 11:59 01/02/20 17:16 01/02/20 20:05 01/03/20 04:52 POC Whole Blood Glucose 272 MG/DL (74-106) H 330 MG/DL (74-106) H 273 MG/DL (74-106) H 196 MG/DL (74-106) H Test 8/14/20 08:50 White Blood Count 10.6 K/UL (4.8-10.8) Red Blood Count 5.48 M/UL (4.70-6.10) Hemoglobin 15.9 G/DL (14.2-18.0) Hematocrit 48.1 % (42.0-52.0) Mean Corpuscular Volume 88 FL (80-99) Mean Corpuscular Hemoglobin 29.1 PG (27.0-31.0) Mean Corpuscular Hemoglobin Concent 33.1 G/DL (32.0-36.0) Red Cell Distribution Width 11.8 % (11.6-14.8) Platelet Count 615 K/UL (150-450) H Mean Platelet Volume 5.3 FL (6.5-10.1) L Neutrophils (%) (Auto) 71.6 % (45.0-75.0) Lymphocytes (%) (Auto) 17.5 % (20.0-45.0) L Monocytes (%) (Auto) 9.2 % (1.0-10.0) Eosinophils (%) (Auto) 1.3 % (0.0-3.0) Basophils (%) (Auto) 0.4 % (0.0-2.0) Sodium Level 131 MMOL/L (136-145) L Potassium Level 4.5 MMOL/L (3.5-5.1) Chloride Level 98 MMOL/L (98-107) Carbon Dioxide Level 28 MMOL/L (21-32) Anion Gap 5 mmol/L (5-15) Blood Urea Nitrogen 23 mg/dL (7-18) H Creatinine 0.9 MG/DL (0.55-1.30) Estimat Glomerular Filtration Rate > 60 mL/min (>60) Glucose Level 238 MG/DL (74-106) H Calcium Level 9.0 MG/DL (8.5-10.1) Total Bilirubin 0.6 MG/DL (0.2-1.0) Direct Bilirubin 0.2 MG/DL (0.0-0.3) Aspartate Amino Transf (AST/SGOT) 21 U/L (15-37) Alanine Aminotransferase (ALT/SGPT) 46 U/L (12-78) Alkaline Phosphatase 70 U/L (46-116) Total Protein 7.1 G/DL (6.4-8.2) Albumin 2.5 G/DL (3.4-5.0) L Globulin 4.6 g/dL Albumin/Globulin Ratio 0.5 (1.0-2.7) L Current Medications Medications (Trade) Dose Ordered Sig/Anson Route PRN Reason Start Time Stop Time Status Last Admin Dose Admin Acetaminophen (Tylenol) 650 mg Q4H PRN ORAL t>100.5 01/01/20 10:44 01/31/20 10:43 01/01/20 21:08 Albuterol Sulfate (Proventil MDI) 2 puff Q6H PRN INH Shortness of Breath 01/01/20 10:45 03/31/20 10:44 Aspirin (Ecotrin) 81 mg DAILY ORAL 01/02/20 09:00 02/12/20 08:59 01/03/20 08:39 Bisacodyl (Dulcolax) 10 mg DAILYPRN PRN ORAL Constipation 01/01/20 14:15 03/31/20 14:14 Dexamethasone Sodium Phosphate (Decadron 10mg/ ml Inj) 6 mg DAILY IV 01/02/20 09:00 01/07/20 09:01 01/03/20 08:40 Dextrose (Dextrose 50%) 25 ml Q30M PRN IV Hypoglycemia 01/01/20 10:45 03/28/20 09:44 Dextrose (Dextrose 50%) 50 ml Q30M PRN IV Hypoglycemia 01/01/20 10:45 03/28/20 09:44 Enalapril Maleate (Vasotec) 10 mg EVERY 12 HOURS ORAL 01/01/20 21:00 01/28/20 08:59 01/03/20 08:40 Enoxaparin Sodium (Lovenox) 40 mg DAILY SUBQ 01/02/20 09:00 03/28/20 08:59 01/03/20 08:41 Insulin Aspart (NovoLOG) BEFORE MEALS AND HS SUBQ 01/01/20 11:30 03/28/20 11:29 01/03/20 06:16 Magnesium Hydroxide (Mom) 30 ml DAILYPRN PRN ORAL Constipation 01/01/20 14:15 01/31/20 14:14 01/01/20 17:16 Metformin HCl (Glucophage) 500 mg BID@0630,1630 ORAL 01/01/20 16:30 01/28/20 06:29 01/03/20 06:05 Naproxen (Naprosyn) 500 mg TWICE A DAY ORAL 01/01/20 18:00 01/28/20 08:59 01/03/20 08:40 Ondansetron HCl (Zofran) 4 mg Q6H PRN IVP Nausea & Vomiting 01/01/20 10:46 01/31/20 10:45 Remdesivir 100 mg/ Sodium Chloride 250 ml @ 250 mls/hr Q24H IV 01/01/20 17:00 01/03/20 17:59 01/02/20 17:29 Tamsulosin HCl (Flomax) 0.4 mg DAILY ORAL 01/02/20 09:00 01/28/20 08:59 01/03/20 08:40 Caren Gant MD Jan 03, 2020 10:28
--- NOTE | 2020-01-03 10:33 | NUR ---
NURSE NOTES: Left message with MD Srivastava answering service to report PLT 615 and NA 131. Per Francisco in [facility], Venous Duplex is pending until pt. is COVID negative. aware.
[2020-01-03 11:45] VITALS: BP 145/77
--- NOTE | 2020-01-03 14:18 | Diagnostic Imaging Report ---
Indication: Dyspnea Technique: One view of the chest Comparison: 12/30/2019 Findings: Bilateral extensive nodular infiltrates are unchanged. Pleural spaces are clear. The heart size is normal Impression: Unchanged, over 4 days, findings as above.
[2020-01-03 15:40] VITALS: BP 137/77
[2020-01-03] MEDS: Remdesivir 100mg 100 MG in NS 230 ML IV SCH (16:56)
--- NOTE | 2020-01-03 19:47 | NUR ---
NURSE HAND-OFF REPORT: Important Events on Shift: Titrating down O2 Patient Status: AAO x4, mild SOB, breathing regular, unlabored, on Venturi Mask. Diet: Cardiac/CCHO Medium Pending Orders: N/A Pending Results/Labs:N/A Pending MD notification:N/A Latest Vital Signs: Temperature 98.6 , Pulse 72 , B/P 137 /77 , Respiratory Rate 20 , O2 SAT 95 , Venturi Mask, O2 Flow Rate 14.0 . Vital Sign Comment: N/A EKG Rhythm: Sinus Rhythm Rhythm change?: N MD Notified?: N - MD Response: Latest Jade Fall Score: 35 Fall Risk: Medium Risk Safety Measures: Call light Within Reach, Bed Alarm Zone 1, Side Rails Side Rails x2, Bed position Low and Locked. Fall Precautions: Patient Fall Education Report given to SOL Anaya.
--- NOTE | 2020-01-03 19:48 | NUR ---
NURSE NOTES: Received patient in bed, awake, alert, oriented x 4, on venturi mask at 6 liters, patient is able to verbalize his needs, uses urinal. No acute distress noted or reported, IV site is clean dry and intact. Call light is within reach, bed is lowered, locked, alarm is on, will continue to monitor for comfort and safety.
[2020-01-03 20:00] VITALS: BP 135/76
[2020-01-04] VITALS: BP 142/82
[2020-01-04 04:00] VITALS: BP 129/65
[2020-01-04] MEDS: metFORMIN 500mg tab ORAL SCH ×2 (05:38→17:12)
[2020-01-04] MEDS: NovoLOG Insulin Flexpen SUBQ SCH ×4 (05:49→21:01)
--- NOTE | 2020-01-04 06:12 | NUR ---
RD ASSESSMENT & RECOMMENDATIONS SEE CARE ACTIVITY FOR COMPLETE ASSESSMENT DAILY ESTIMATED NEEDS: Needs based on DM/ 70kg abw 25-30 kcals/kg 3173-5808 total kcals 1-1.3 g protein/kg 70-91 g total protein 25-30 mL/kg 6019-5519 total fluid mLs NUTRITION DIAGNOSIS: Altered nutrition related lab values R/T h/o DM, on steroidal med as evidenced by A1C of 10.3, U glu 4+ upon adm, elev BGs and POC glu ([phone]), pt on Decadron. CURRENT DIET:CCHO MED, CARDIAC PO DIET RECOMMENDATIONS: CCHO LOW, LOW NA + double protein portions ADDITIONAL RECOMMENDATIONS: * Standing wt for accurate CBW * Monitor for continued good PO tolerance: COVID-19+, on venturi mask * Consider long acting insulin for improved BG control
[2020-01-04 07:22] LABS: BASOPHILS % (AUTO) 1.1 % (0.0-2.0); EOSINOPHILS % (AUTO) 1.2 % (0.0-3.0); HEMATOCRIT 49.4 % (42.0-52.0); HEMOGLOBIN 16.5 G/DL (14.2-18.0); LYMPHOCYTES % (AUTO) 23.5 % (20.0-45.0); MEAN CORPUSCULAR VOLUME 88 FL (80-99); MONOCYTES % (AUTO) 8.7 % (1.0-10.0); NEUTROPHILS % (AUTO) 65.6 % (45.0-75.0); PLATELET COUNT 632 K/UL (150-450); RED BLOOD COUNT 5.64 M/UL (4.70-6.10); RED CELL DISTRIBUTION WIDTH 11.9 % (11.6-14.8); WHITE BLOOD COUNT 9.9 K/UL (4.8-10.8)
[2020-01-04 07:24] LABS: ALANINE AMINOTRANSFERASE 36 U/L (12-78); ALBUMIN 2.7 G/DL (3.4-5.0); ALBUMIN/GLOBULIN RATIO 0.6 (1.0-2.7); ALKALINE PHOSPHATASE 72 U/L (46-116); ANION GAP 9 mmol/L (5-15); ASPARTATE AMINO TRANSFERASE 21 U/L (15-37); BILIRUBIN,DIRECT 0.2 MG/DL (0.0-0.3); BILIRUBIN,TOTAL 0.8 MG/DL (0.2-1.0); BLOOD UREA NITROGEN 25 mg/dL (7-18); CARBON DIOXIDE 27 MMOL/L (21-32); CHLORIDE 96 MMOL/L (98-107); CREATININE 0.8 MG/DL (0.55-1.30); POTASSIUM 4.7 MMOL/L (3.5-5.1); SODIUM 132 MMOL/L (136-145)
--- NOTE | 2020-01-04 07:25 | NUR ---
NURSE HAND-OFF REPORT: Important Events on Shift: no significant events Patient Status: stable Diet: CCHO med Pending Orders: Pending Results/Labs: Pending MD notification: Latest Vital Signs: Temperature 97.3 , Pulse 66 , B/P 129 /65 , Respiratory Rate 20 , O2 SAT 96 , Venturi Mask, O2 Flow Rate 14.0 . Vital Sign Comment: EKG Rhythm: SB w/ BBB Rhythm change?: N MD Notified?: N - MD Response: Latest Jade Fall Score: 35 Fall Risk: Medium Risk Safety Measures: Call light Within Reach, Bed Alarm Zone 1, Side Rails Side Rails x2, Bed position Low and Locked. Fall Precautions: Patient Fall Education Report given to Zelda HORTON
--- NOTE | 2020-01-04 07:26 | NUR ---
NURSE NOTES: Received report from Jaclyn/SOL. Patient A/O X4. Patient is lying semi-fowlers, having breakfast. On Venturi Mask 6L/min, no distress or SOB noted at this time. Able to make needs known. IV on right hand 22G, saline locked, patent and clean. Bed in the lowest position and locked. Call light within reach, encourage to use call light when needed. Side rails X3. Will continue plan of care.
[2020-01-04 08:00] VITALS: BP 122/79
[2020-01-04] MEDS: Naproxen 500mg tab ORAL SCH ×2 (08:48→17:13)
[2020-01-04] MEDS: Tamsulosin 0.4mg cap ORAL SCH (08:49)
[2020-01-04] MEDS: Aspirin EC 81mg tab ORAL SCH (08:49)
[2020-01-04] MEDS: Enoxaparin 40mg Inj SUBQ SCH (08:50)
[2020-01-04] MEDS: dexAMETHasone 10mg/ml Inj IV SCH (08:50)
--- NOTE | 2020-01-04 09:11 | General Progress Note ---
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 labs and imaging monitor in tele still ill impression, plan, and exam edited and reviewed in detail care discussed with RN Subjective Allergies: Coded Allergies: No Known Allergies (Unverified , 12/28/19) Subjective d/w RN on nonrebreather otherwise same daughter aware meds noted Objective Last 24 Hour Vital Signs Date Time Temp Pulse Resp B/P (MAP) Pulse Ox O2 Delivery O2 Flow Rate FiO2 01/04/20 08:49 122/79 01/04/20 04:00 58 01/04/20 04:00 97.3 66 20 129/65 (86) 96 01/04/20 00:00 98.0 80 20 142/82 (102) 95 01/04/20 00:00 60 01/03/20 22:04 Venturi Mask 14.0 01/03/20 21:03 129/75 01/03/20 20:00 74 01/03/20 20:00 97.8 75 20 135/76 (95) 95 01/03/20 16:00 72 01/03/20 15:40 98.6 71 20 137/77 (97) 95 01/03/20 12:00 74 01/03/20 11:45 98.4 75 20 145/77 (99) 94 Intake and Output 01/03/20 01/04/20 19:00 07:00 Intake Total 1720 ml Output Total 2600 ml Balance -880 ml Intake Oral 1720 ml Output Urine Total 2600 ml Laboratory Tests 01/03/20 11:19: POC Whole Blood Glucose 365H 01/03/20 16:59: POC Whole Blood Glucose 307H 01/03/20 21:05: POC Whole Blood Glucose 245H 01/04/20 06:00: White Blood Count 9.9, Red Blood Count 5.64, Hemoglobin 16.5, Hematocrit 49.4, Mean Corpuscular Volume 88, Mean Corpuscular Hemoglobin 29.3, Mean Corpuscular Hemoglobin Concent 33.4, Red Cell Distribution Width 11.9, Platelet Count 632H, Mean Platelet Volume 5.2L, Neutrophils (%) (Auto) 65.6, Lymphocytes (%) (Auto) 23.5, Monocytes (%) (Auto) 8.7, Eosinophils (%) (Auto) 1.2, Basophils (%) (Auto ) 1.1, Sodium Level 132L, Potassium Level 4.7, Chloride Level 96L, Carbon Dioxide Level 27, Anion Gap 9, Blood Urea Nitrogen 25H, Creatinine 0.8, Estimat Glomerular Filtration Rate > 60, Glucose Level 144H, Calcium Level 9.0, Total Bilirubin 0.8, Direct Bilirubin 0.2, Aspartate Amino Transf (AST/SGOT) 21, Alanine Aminotransferase (ALT/SGPT) 36, Alkaline Phosphatase 72, Total Protein 7.4, Albumin 2.7L, Globulin 4.7, Albumin/Globulin Ratio 0.6L Height (Feet): 5 Height (Inches): 6.00 Weight (Pounds): 187 Objective deferred due to JOAQUINID+ Taj Srivastava MD Jan 04, 2020 09:11
--- NOTE | 2020-01-04 09:38 | NUR ---
NURSE NOTES: Found full bag of Remdesivir hanging on the IV pole, patient stated that he didn't received it yesterday. RN called pharmacy to let them know. Pharmacy will follow up with ID
--- NOTE | 2020-01-04 10:48 | Infectious Diseases Prog Note ---
Assessment/Plan Assessment/Plan antibiotics remdesivir 8..20 - dexamethasone A 1. COVID 19 pneumonia on 14 liters O2, 94 % saturation 2. diabetes mellitus 3. hypertension P 1. complete remdesivir day 5 2. continue dexamethasone day 8 3. continue isolation 4. will follow up cultures Subjective Constitutional: Denies: fever, chills Respiratory: Reports: shortness of breath, dry cough Gastrointestinal/Abdominal: Denies: nausea, vomiting, diarrhea Musculoskeletal: Denies: pain Allergies: Coded Allergies: No Known Allergies (Unverified , 12/28/19) Objective Last 24 Hour Vital Signs Date Time Temp Pulse Resp B/P (MAP) Pulse Ox O2 Delivery O2 Flow Rate FiO2 01/04/20 09:00 Venturi Mask 6.0 01/04/20 08:49 122/79 01/04/20 08:00 97.5 80 22 122/79 (93) 96 01/04/20 08:00 74 01/04/20 04:00 58 01/04/20 04:00 97.3 66 20 129/65 (86) 96 01/04/20 00:00 98.0 80 20 142/82 (102) 95 01/04/20 00:00 60 01/03/20 22:04 Venturi Mask 14.0 01/03/20 21:03 129/75 01/03/20 20:00 74 01/03/20 20:00 97.8 75 20 135/76 (95) 95 01/03/20 16:00 72 01/03/20 15:40 98.6 71 20 137/77 (97) 95 01/03/20 12:00 74 01/03/20 11:45 98.4 75 20 145/77 (99) 94 Height (Feet): 5 Height (Inches): 6.00 Weight (Pounds): 187 Laboratory Tests Test 01/03/20 11:19 01/03/20 16:59 01/03/20 21:05 01/04/20 06:00 POC Whole Blood Glucose 365 MG/DL (74-106) H 307 MG/DL (74-106) H 245 MG/DL (74-106) H White Blood Count 9.9 K/UL (4.8-10.8) Red Blood Count 5.64 M/UL (4.70-6.10) Hemoglobin 16.5 G/DL (14.2-18.0) Hematocrit 49.4 % (42.0-52.0) Mean Corpuscular Volume 88 FL (80-99) Mean Corpuscular Hemoglobin 29.3 PG (27.0-31.0) Mean Corpuscular Hemoglobin Concent 33.4 G/DL (32.0-36.0) Red Cell Distribution Width 11.9 % (11.6-14.8) Platelet Count 632 K/UL (150-450) H Mean Platelet Volume 5.2 FL (6.5-10.1) L Neutrophils (%) (Auto) 65.6 % (45.0-75.0) Lymphocytes (%) (Auto) 23.5 % (20.0-45.0) Monocytes (%) (Auto) 8.7 % (1.0-10.0) Eosinophils (%) (Auto) 1.2 % (0.0-3.0) Basophils (%) (Auto) 1.1 % (0.0-2.0) Sodium Level 132 MMOL/L (136-145) L Potassium Level 4.7 MMOL/L (3.5-5.1) Chloride Level 96 MMOL/L (98-107) L Carbon Dioxide Level 27 MMOL/L (21-32) Anion Gap 9 mmol/L (5-15) Blood Urea Nitrogen 25 mg/dL (7-18) H Creatinine 0.8 MG/DL (0.55-1.30) Estimat Glomerular Filtration Rate > 60 mL/min (>60) Glucose Level 144 MG/DL (74-106) H Calcium Level 9.0 MG/DL (8.5-10.1) Total Bilirubin 0.8 MG/DL (0.2-1.0) Direct Bilirubin 0.2 MG/DL (0.0-0.3) Aspartate Amino Transf (AST/SGOT) 21 U/L (15-37) Alanine Aminotransferase (ALT/SGPT) 36 U/L (12-78) Alkaline Phosphatase 72 U/L (46-116) Total Protein 7.4 G/DL (6.4-8.2) Albumin 2.7 G/DL (3.4-5.0) L Globulin 4.7 g/dL Albumin/Globulin Ratio 0.6 (1.0-2.7) L Current Medications Medications (Trade) Dose Ordered Sig/Anson Route PRN Reason Start Time Stop Time Status Last Admin Dose Admin Acetaminophen (Tylenol) 650 mg Q4H PRN ORAL t>100.5 01/01/20 10:44 01/31/20 10:43 01/01/20 21:08 Albuterol Sulfate (Proventil MDI) 2 puff Q6H PRN INH Shortness of Breath 01/01/20 10:45 03/31/20 10:44 Aspirin (Ecotrin) 81 mg DAILY ORAL 01/02/20 09:00 02/12/20 08:59 01/04/20 08:49 Bisacodyl (Dulcolax) 10 mg DAILYPRN PRN ORAL Constipation 01/01/20 14:15 03/31/20 14:14 Dexamethasone Sodium Phosphate (Decadron 10mg/ ml Inj) 6 mg DAILY IV 01/02/20 09:00 01/07/20 09:01 01/04/20 08:50 Dextrose (Dextrose 50%) 25 ml Q30M PRN IV Hypoglycemia 01/03/20 12:30 04/02/20 12:29 Dextrose (Dextrose 50%) 50 ml Q30M PRN IV Hypoglycemia 01/03/20 12:30 04/02/20 12:29 Enalapril Maleate (Vasotec) 10 mg EVERY 12 HOURS ORAL 01/01/20 21:00 01/28/20 08:59 01/04/20 08:49 Enoxaparin Sodium (Lovenox) 40 mg DAILY SUBQ 01/02/20 09:00 03/28/20 08:59 01/04/20 08:50 Insulin Aspart (NovoLOG) BEFORE MEALS AND HS SUBQ 01/03/20 16:30 04/02/20 16:29 01/03/20 21:11 Magnesium Hydroxide (Mom) 30 ml DAILYPRN PRN ORAL Constipation 01/01/20 14:15 01/31/20 14:14 01/01/20 17:16 Metformin HCl (Glucophage) 500 mg BID@0630,1630 ORAL 01/01/20 16:30 01/28/20 06:29 01/04/20 05:38 Naproxen (Naprosyn) 500 mg TWICE A DAY ORAL 01/01/20 18:00 01/28/20 08:59 01/04/20 08:48 Ondansetron HCl (Zofran) 4 mg Q6H PRN IVP Nausea & Vomiting 01/01/20 10:46 01/31/20 10:45 Tamsulosin HCl (Flomax) 0.4 mg DAILY ORAL 01/02/20 09:00 01/28/20 08:59 01/04/20 08:49 Caren Gant MD Jan 04, 2020 10:48
--- NOTE | 2020-01-04 10:48 | NUR ---
CASE MANAGEMENT:REVIEW SI;COVID-19 PNEUMONIA 98.0 58 22 142/95 95% 14L VENTURI MASK FIO2 55% PLT 632 NA 132 CL 96 BUN 25 BG 144 ALB 2.7 IS;DECADRON IV QD LOVENOX SUBQ QD VASOTEC PO BID METFORMIN PO BID FLOMAX O QD ASA PO QD TELE STATUS DCP;FROM HOME PLAN; TITRATE O2 TOLERATED
--- NOTE | 2020-01-04 10:57 | NUR ---
INSURANCE FAXED CLINICALS AND REVIEW TO FLAQUITA ARCINIEGA T: [phone] F: [phone] REF #[id number] AND [employer] F: [phone]
[2020-01-04 12:00] VITALS: BP 127/77
[2020-01-04] MEDS ORDERED: SODIUM CHLORIDE IV ONE ×2 (12:00)
[2020-01-04] MEDS ORDERED: REMDESIVIR IV ONE ×2 (12:00)
[2020-01-04 16:00] VITALS: BP 127/76
--- NOTE | 2020-01-04 19:05 | NUR ---
NURSE HAND-OFF REPORT: Important Events on Shift:None Patient Status: Stable Diet: cardiac CCHO (medium) Pending Orders: None Pending Results/Labs:None Pending MD notification:None Latest Vital Signs: Temperature 97.9 , Pulse 75 , B/P 127 /76 , Respiratory Rate 22 , O2 SAT 97 , Venturi Mask, O2 Flow Rate 6.0 . Vital Sign Comment: stable EKG Rhythm: Sinus Rhythm Rhythm change?: N MD Notified?: N - MD Response: Latest Jade Fall Score: 35 Fall Risk: Medium Risk Safety Measures: Call light Within Reach, Bed Alarm Zone 1, Side Rails Side Rails x2, Bed position Low and Locked. Fall Precautions: Patient Fall Education Report given to Beckie/SOL.
--- NOTE | 2020-01-04 19:20 | NUR ---
NURSE NOTES: Recived report from SOL Sarabia. Patient is awake, alert and oriented x 4. On cardiac diet, CCHO (Medium), instructed and amenable. psychiatry resident is in place, shows sinus rhythm with no SOB nor chest pain reported. With oxygen via venturi mask @ 6LPM. With IV site on right hand g-22 saline lock that is patent and intact. Safety measures are in place, bed in lowest and locked position, side rails up x 2. Call light button and bedside table within reach, instructed to call for any assistance needed, will continue plan of care.
[2020-01-04 20:00] VITALS: BP 136/79
[2020-01-05] VITALS: BP 131/75
[2020-01-05 04:00] VITALS: BP 133/82
[2020-01-05] MEDS: metFORMIN 500mg tab ORAL SCH ×2 (05:50→16:30)
[2020-01-05] MEDS: NovoLOG Insulin Flexpen SUBQ SCH ×4 (05:50→20:18)
[2020-01-05 06:27] LABS: BASOPHILS % (AUTO) 1.1 % (0.0-2.0); EOSINOPHILS % (AUTO) 0.9 % (0.0-3.0); HEMATOCRIT 48.6 % (42.0-52.0); HEMOGLOBIN 16.3 G/DL (14.2-18.0); LYMPHOCYTES % (AUTO) 22.7 % (20.0-45.0); MEAN CORPUSCULAR VOLUME 88 FL (80-99); MONOCYTES % (AUTO) 6.9 % (1.0-10.0); NEUTROPHILS % (AUTO) 68.4 % (45.0-75.0); PLATELET COUNT 619 K/UL (150-450); RED BLOOD COUNT 5.52 M/UL (4.70-6.10); RED CELL DISTRIBUTION WIDTH 12.1 % (11.6-14.8)
[2020-01-05 06:54] LABS: ALANINE AMINOTRANSFERASE 43 U/L (12-78); ALBUMIN 2.7 G/DL (3.4-5.0); ALBUMIN/GLOBULIN RATIO 0.6 (1.0-2.7); ALKALINE PHOSPHATASE 64 U/L (46-116); ANION GAP 7 mmol/L (5-15); ASPARTATE AMINO TRANSFERASE 21 U/L (15-37); BILIRUBIN,DIRECT 0.2 MG/DL (0.0-0.3); BILIRUBIN,TOTAL 0.9 MG/DL (0.2-1.0); BLOOD UREA NITROGEN 28 mg/dL (7-18); CALCIUM 8.8 MG/DL (8.5-10.1); CARBON DIOXIDE 27 MMOL/L (21-32); CHLORIDE 99 MMOL/L (98-107); CREATININE 0.8 MG/DL (0.55-1.30); POTASSIUM 4.4 MMOL/L (3.5-5.1); SODIUM 132 MMOL/L (136-145)
--- NOTE | 2020-01-05 07:08 | NUR ---
NURSE HAND-OFF REPORT: Important Events on Shift: patient had a desaturation around 2100 yesterday, shifted to non-rebreather mask @ 15 Lpm. EKG converted to Sin us rhythm Patient Status: stable Diet: Cardiac Diet Pending Orders: none Pending Results/Labs: none Pending MD notification: none Latest Vital Signs: Temperature 97.9 , Pulse 63 , B/P 133 /82 , Respiratory Rate 21 , O2 SAT 95 , Venturi Mask, O2 Flow Rate 6.0 . Vital Sign Comment: EKG Rhythm: SR with BBB Rhythm change?: N MD Notified?: N - MD Response: Latest Jade Fall Score: 35 Fall Risk: Medium Risk Safety Measures: Call light Within Reach, Bed Alarm Zone 1, Side Rails Side Rails x2, Bed position Low and Locked. Fall Precautions: Patient Fall Education Report given to
--- NOTE | 2020-01-05 07:09 | NUR ---
NURSE NOTES: Received report from Beckie/RN. Patient A/O X4. Patient is lying semi-fowlers, having breakfast. On Venturi Mask 6L/min, no distress or SOB noted at this time. Able to make needs known. IV on right hand 22G, saline locked, patent and clean. Bed in the lowest position and locked. Call light within reach, encourage to use call light when needed. Side rails X3. Will continue plan of care.
[2020-01-05 08:00] VITALS: BP 117/66
[2020-01-05] MEDS: Naproxen 500mg tab ORAL SCH ×2 (08:26→17:58)
[2020-01-05] MEDS: dexAMETHasone 10mg/ml Inj IV SCH (08:28)
[2020-01-05] MEDS: Aspirin EC 81mg tab ORAL SCH (08:28)
[2020-01-05] MEDS: Tamsulosin 0.4mg cap ORAL SCH (08:28)
[2020-01-05] MEDS: Enoxaparin 40mg Inj SUBQ SCH (08:30)
--- NOTE | 2020-01-05 10:15 | General Progress Note ---
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 Monitor labs and imaging monitor in tele still requiring high oxygen impression, plan, and exam edited and reviewed in detail care discussed with RN Subjective Allergies: Coded Allergies: No Known Allergies (Unverified , 12/28/19) Subjective d/w RN on face mask otherwise same daughter aware meds noted Objective Last 24 Hour Vital Signs Date Time Temp Pulse Resp B/P (MAP) Pulse Ox O2 Delivery O2 Flow Rate FiO2 01/05/20 09:00 Venturi Mask 6.0 01/05/20 08:27 117/66 01/05/20 08:00 92 01/05/20 08:00 97.5 73 20 117/66 (83) 92 01/05/20 04:00 63 01/05/20 04:00 97.9 69 21 133/82 (99) 95 01/05/20 00:00 98.0 77 22 131/75 (93) 96 01/05/20 00:00 64 01/04/20 21:00 Venturi Mask 6.0 01/04/20 20:59 136/79 01/04/20 20:00 98.2 80 23 136/79 (98) 96 01/04/20 20:00 73 01/04/20 16:00 75 01/04/20 16:00 97.9 76 22 127/76 (93) 97 01/04/20 12:00 97.5 84 22 127/77 (94) 94 01/04/20 12:00 82 Intake and Output 01/04/20 01/05/20 19:00 07:00 Intake Total 400 ml 1000 ml Output Total 2100 ml 1800 ml Balance -1700 ml -800 ml Intake Oral 400 ml 1000 ml Output Urine Total 2100 ml 1800 ml # Voids 5 4 Laboratory Tests 01/04/20 12:07: POC Whole Blood Glucose [Pending] 01/04/20 16:53: POC Whole Blood Glucose 284H 01/04/20 20:51: POC Whole Blood Glucose [Pending] 01/05/20 03:15: White Blood Count 11.0H, Red Blood Count 5.52, Hemoglobin 16.3, Hematocrit 48.6 , Mean Corpuscular Volume 88, Mean Corpuscular Hemoglobin 29.6, Mean Corpuscular Hemoglobin Concent 33.6, Red Cell Distribution Width 12.1, Platelet Count 619H, Mean Platelet Volume 5.3L, Neutrophils (%) (Auto) 68.4, Lymphocytes (%) (Auto) 22.7, Monocytes (%) (Auto) 6.9, Eosinophils (%) (Auto) 0.9, Basophils (%) (Auto) 1.1, Sodium Level 132L, Potassium Level 4.4, Chloride Level 99, Carbon Dioxide Level 27, Anion Gap 7, Blood Urea Nitrogen 28H, Creatinine 0.8, Estimat Glomerular Filtration Rate > 60, Glucose Level 130H, Calcium Level 8.8, Total Bilirubin 0.9, Direct Bilirubin 0.2, Aspartate Amino Transf (AST/SGOT) 21, Alanine Aminotransferase (ALT/SGPT) 43, Alkaline Phosphatase 64, Total Protein 7.2, Albumin 2.7L, Globulin 4.5, Albumin/Globulin Ratio 0.6L 01/05/20 05:46: POC Whole Blood Glucose 138H Height (Feet): 5 Height (Inches): 6.00 Weight (Pounds): 187 Objective deferred due to DEANNA+ Taj Srivastava MD Jan 05, 2020 10:15
[2020-01-05 12:00] VITALS: BP 112/63
--- NOTE | 2020-01-05 13:11 | NUR ---
CASE MANAGEMENT:REVIEW SI;COVID PNEUMONIA 98.0 77 22 133/82 92% 6L VENTURI MASK WBC 11.0 PLT 619 NA 132 BUN 28 ALB 2.7 IS;DECADRON IV QD (DAY #4/6 LOVENOX SUBQ QD VASOTEC PO Q12 ASA PO QD GLUCOPHAGE PO BID TELE STATUS DCP;FROM HOME PLAN; TITRATE O2 TOLERATED
--- NOTE | 2020-01-05 13:20 | NUR ---
INSURANCE FAXED CLINICALS AND REVIEW TO FLAQUITA ARCINIEGA T: [phone] F: [phone] REF #[id number] AND [employer] F: [phone]
--- NOTE | 2020-01-05 14:45 | Infectious Diseases Prog Note ---
Assessment/Plan Assessment/Plan A 1. COVID 19 pneumonia 2. Diabetes mellitus with Hyperglycemia 3. Hypertension 4. Hypoxemia P 1. Finished remdesivir course 2. continue dexamethasone 3. continue isolation Subjective ROS Limited/Unobtainable: No Constitutional: Reports: no symptoms Respiratory: Reports: shortness of breath, productive cough Cardiovascular: Reports: chest pain, dyspnea on exertion Gastrointestinal/Abdominal: Reports: no symptoms Genitourinary: Reports: no symptoms Allergies: Coded Allergies: No Known Allergies (Unverified , 12/28/19) Objective Last 24 Hour Vital Signs Date Time Temp Pulse Resp B/P (MAP) Pulse Ox O2 Delivery O2 Flow Rate FiO2 01/05/20 12:00 97.6 74 20 112/63 (79) 97 01/05/20 12:00 67 01/05/20 09:00 Venturi Mask 6.0 01/05/20 08:27 117/66 01/05/20 08:00 92 01/05/20 08:00 97.5 73 20 117/66 (83) 92 01/05/20 04:00 63 01/05/20 04:00 97.9 69 21 133/82 (99) 95 01/05/20 00:00 98.0 77 22 131/75 (93) 96 01/05/20 00:00 64 01/04/20 21:00 Venturi Mask 6.0 01/04/20 20:59 136/79 01/04/20 20:00 98.2 80 23 136/79 (98) 96 01/04/20 20:00 73 01/04/20 16:00 75 01/04/20 16:00 97.9 76 22 127/76 (93) 97 Height (Feet): 5 Height (Inches): 6.00 Weight (Pounds): 187 General Appearance: no acute distress HEENT: mucous membranes moist Respiratory/Chest: lungs clear, other - Oxygen by mask Cardiovascular: normal rate Abdomen: soft, non tender Extremities: no edema Neurologic/Psychiatric: alert, oriented x 3, responsive Laboratory Tests Test 01/04/20 16:53 01/04/20 20:51 01/05/20 03:15 01/05/20 05:46 POC Whole Blood Glucose 284 MG/DL (74-106) H Pending 138 MG/DL (74-106) H White Blood Count 11.0 K/UL (4.8-10.8) H Red Blood Count 5.52 M/UL (4.70-6.10) Hemoglobin 16.3 G/DL (14.2-18.0) Hematocrit 48.6 % (42.0-52.0) Mean Corpuscular Volume 88 FL (80-99) Mean Corpuscular Hemoglobin 29.6 PG (27.0-31.0) Mean Corpuscular Hemoglobin Concent 33.6 G/DL (32.0-36.0) Red Cell Distribution Width 12.1 % (11.6-14.8) Platelet Count 619 K/UL (150-450) H Mean Platelet Volume 5.3 FL (6.5-10.1) L Neutrophils (%) (Auto) 68.4 % (45.0-75.0) Lymphocytes (%) (Auto) 22.7 % (20.0-45.0) Monocytes (%) (Auto) 6.9 % (1.0-10.0) Eosinophils (%) (Auto) 0.9 % (0.0-3.0) Basophils (%) (Auto) 1.1 % (0.0-2.0) Sodium Level 132 MMOL/L (136-145) L Potassium Level 4.4 MMOL/L (3.5-5.1) Chloride Level 99 MMOL/L (98-107) Carbon Dioxide Level 27 MMOL/L (21-32) Anion Gap 7 mmol/L (5-15) Blood Urea Nitrogen 28 mg/dL (7-18) H Creatinine 0.8 MG/DL (0.55-1.30) Estimat Glomerular Filtration Rate > 60 mL/min (>60) Glucose Level 130 MG/DL (74-106) H Calcium Level 8.8 MG/DL (8.5-10.1) Total Bilirubin 0.9 MG/DL (0.2-1.0) Direct Bilirubin 0.2 MG/DL (0.0-0.3) Aspartate Amino Transf (AST/SGOT) 21 U/L (15-37) Alanine Aminotransferase (ALT/SGPT) 43 U/L (12-78) Alkaline Phosphatase 64 U/L (46-116) Total Protein 7.2 G/DL (6.4-8.2) Albumin 2.7 G/DL (3.4-5.0) L Globulin 4.5 g/dL Albumin/Globulin Ratio 0.6 (1.0-2.7) L Test 01/05/20 11:25 POC Whole Blood Glucose Pending Current Medications Medications (Trade) Dose Ordered Sig/Anson Route PRN Reason Start Time Stop Time Status Last Admin Dose Admin Acetaminophen (Tylenol) 650 mg Q4H PRN ORAL t>100.5 01/01/20 10:44 01/31/20 10:43 01/01/20 21:08 Albuterol Sulfate (Proventil MDI) 2 puff Q6H PRN INH Shortness of Breath 01/01/20 10:45 03/31/20 10:44 Aspirin (Ecotrin) 81 mg DAILY ORAL 01/02/20 09:00 02/12/20 08:59 01/05/20 08:28 Bisacodyl (Dulcolax) 10 mg DAILYPRN PRN ORAL Constipation 01/01/20 14:15 03/31/20 14:14 Dexamethasone Sodium Phosphate (Decadron 10mg/ ml Inj) 6 mg DAILY IV 01/02/20 09:00 01/07/20 09:01 01/05/20 08:28 Dextrose (Dextrose 50%) 25 ml Q30M PRN IV Hypoglycemia 01/03/20 12:30 04/02/20 12:29 Dextrose (Dextrose 50%) 50 ml Q30M PRN IV Hypoglycemia 01/03/20 12:30 04/02/20 12:29 Enalapril Maleate (Vasotec) 10 mg EVERY 12 HOURS ORAL 01/01/20 21:00 01/28/20 08:59 01/05/20 08:27 Enoxaparin Sodium (Lovenox) 40 mg DAILY SUBQ 01/02/20 09:00 03/28/20 08:59 01/05/20 08:30 Insulin Aspart (NovoLOG) BEFORE MEALS AND HS SUBQ 01/03/20 16:30 04/02/20 16:29 01/05/20 11:31 Magnesium Hydroxide (Mom) 30 ml DAILYPRN PRN ORAL Constipation 01/01/20 14:15 01/31/20 14:14 01/01/20 17:16 Metformin HCl (Glucophage) 500 mg BID@0630,1630 ORAL 01/01/20 16:30 9/8/20 06:29 01/05/20 05:50 Naproxen (Naprosyn) 500 mg TWICE A DAY ORAL 01/01/20 18:00 01/28/20 08:59 01/05/20 08:26 Ondansetron HCl (Zofran) 4 mg Q6H PRN IVP Nausea & Vomiting 01/01/20 10:46 01/31/20 10:45 Tamsulosin HCl (Flomax) 0.4 mg DAILY ORAL 01/02/20 09:00 01/28/20 08:59 01/05/20 08:28 Vincenzo Jaquez MD Jan 05, 2020 14:45
[2020-01-05 16:00] VITALS: BP 127/74
--- NOTE | 2020-01-05 19:05 | NUR ---
NURSE HAND-OFF REPORT: Important Events on Shift:None Patient Status: Stable Diet: Cardiac CCHO medium Pending Orders: Pending Results/Labs: Pending MD notification: Latest Vital Signs: Temperature 97.5 , Pulse 71 , B/P 127 /74 , Respiratory Rate 20 , O2 SAT 92 , Venturi Mask, O2 Flow Rate 6.0 . Vital Sign Comment: Stable EKG Rhythm: Sinus Rhythm Rhythm change?: N MD Notified?: N - MD Response: Latest Jade Fall Score: 35 Fall Risk: Medium Risk Safety Measures: Call light Within Reach, Bed Alarm Zone 1, Side Rails Side Rails x2, Bed position Low and Locked. Fall Precautions: Patient Fall Education Report given to Beckie/SOL.
--- NOTE | 2020-01-05 19:25 | NUR ---
NURSE NOTES: Received report from SOL Crystal. Patient is on bed, alert and oriented x 4. manager monitoring is in place, shows sinus rhythm with no chest pain reported. On oxygen via venturi mask @ 6Lpm, 35% Fi02 and no desaturation at this time. On cardiac diet, instructed and amenable. Safety measures are in place, bed in lowest and locked position, side rails up x 2. Call light button and bedside table within reach, instructed to call for any assistance needed. Will continue plan of care.
[2020-01-05 20:00] VITALS: BP 131/71
[2020-01-06] VITALS: BP 145/79
[2020-01-06 04:00] VITALS: BP 131/73
[2020-01-06] MEDS: metFORMIN 500mg tab ORAL SCH ×2 (06:08→16:41)
[2020-01-06] MEDS: NovoLOG Insulin Flexpen SUBQ SCH ×4 (06:09→20:29)
[2020-01-06 06:14] LABS: BASOPHILS % (AUTO) 0.8 % (0.0-2.0); EOSINOPHILS % (AUTO) 0.8 % (0.0-3.0); HEMATOCRIT 46.2 % (42.0-52.0); HEMOGLOBIN 15.4 G/DL (14.2-18.0); LYMPHOCYTES % (AUTO) 24.4 % (20.0-45.0); MEAN CORPUSCULAR VOLUME 87 FL (80-99); MONOCYTES % (AUTO) 7.4 % (1.0-10.0); NEUTROPHILS % (AUTO) 66.6 % (45.0-75.0); PLATELET COUNT 559 K/UL (150-450); RED BLOOD COUNT 5.28 M/UL (4.70-6.10); WHITE BLOOD COUNT 10.8 K/UL (4.8-10.8)
[2020-01-06 06:24] LABS: ANION GAP 8 mmol/L (5-15); BLOOD UREA NITROGEN 27 mg/dL (7-18); CALCIUM 8.5 MG/DL (8.5-10.1); CARBON DIOXIDE 24 MMOL/L (21-32); CHLORIDE 97 MMOL/L (98-107); CREATININE 0.8 MG/DL (0.55-1.30); POTASSIUM 4.1 MMOL/L (3.5-5.1); SODIUM 129 MMOL/L (136-145)
--- NOTE | 2020-01-06 07:40 | NUR ---
NURSE NOTES: Received report from SOL Rockwell. Patient AAO x4, high-ware's, eating breakfast. Patient c/o mild SOB. Continuous SPO2 96% on 4L NC. Breathing regular, RR 20 bpm, and non-labored. R hand 22 g saline locked, flushed patent, intact. No redness or infiltration observed. Radial pulses palpable, equal. Clear, yellow urine via urinal. Fall education provided, precautions in place.
--- NOTE | 2020-01-06 07:41 | NUR ---
NURSE HAND-OFF REPORT: Important Events on Shift: Able to titrated down patient oxygen support Patient Status: Awake on bed in stable condition Diet: Cardiac Diet Pending Orders: Venous duplex Pending Results/Labs: Pending MD notification: Latest Vital Signs: Temperature 97.6 , Pulse 60 , B/P 131 /73 , Respiratory Rate 22 , O2 SAT 95 , Venturi Mask, O2 Flow Rate 6.0 . Vital Sign Comment: EKG Rhythm: Sinus Rhythm Rhythm change?: N MD Notified?: N - MD Response: Latest Jade Fall Score: 35 Fall Risk: Medium Risk Safety Measures: Call light Within Reach, Bed Alarm Zone 1, Side Rails Side Rails x2, Bed position Low and Locked. Fall Precautions: Patient Fall Education Report given to SOL Siddiqi.
[2020-01-06 08:00] VITALS: BP 123/70
--- NOTE | 2020-01-06 08:00 | General Progress Note ---
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 labs and imaging and hope to see further improvement monitor in tele still requiring high oxygen impression, plan, and exam edited and reviewed in detail care discussed with RN Subjective Allergies: Coded Allergies: No Known Allergies (Unverified , 12/28/19) Subjective d/w RN on face mask at 6 liters otherwise same daughter aware meds noted Objective Last 24 Hour Vital Signs Date Time Temp Pulse Resp B/P (MAP) Pulse Ox O2 Delivery O2 Flow Rate FiO2 01/06/20 04:00 60 01/06/20 04:00 97.6 68 22 131/73 (92) 95 01/06/20 00:00 97.1 75 21 145/79 (101) 97 01/06/20 00:00 62 01/05/20 21:00 Venturi Mask 6.0 01/05/20 20:16 131/71 01/05/20 20:00 70 01/05/20 20:00 96.9 81 22 131/71 (91) 96 01/05/20 16:00 71 01/05/20 16:00 97.5 79 20 127/74 (91) 92 01/05/20 12:00 97.6 74 20 112/63 (79) 97 01/05/20 12:00 67 01/05/20 09:00 Venturi Mask 6.0 01/05/20 08:27 117/66 01/05/20 08:00 92 01/05/20 08:00 97.5 73 20 117/66 (83) 92 Intake and Output 01/05/20 01/06/20 19:00 07:00 Intake Total 1500 ml Output Total 1200 ml Balance 300 ml Intake Oral 1500 ml Output Urine Total 1200 ml # Voids 3 Laboratory Tests 01/05/20 11:25: POC Whole Blood Glucose [Pending] 01/05/20 16:36: POC Whole Blood Glucose [Pending] 01/06/20 04:30: White Blood Count 10.8, Red Blood Count 5.28, Hemoglobin 15.4, Hematocrit 46.2, Mean Corpuscular Volume 87, Mean Corpuscular Hemoglobin 29.1, Mean Corpuscular Hemoglobin Concent 33.4, Red Cell Distribution Width 12.0, Platelet Count 559H, Mean Platelet Volume 5.1L, Neutrophils (%) (Auto) 66.6, Lymphocytes (%) (Auto) 24.4, Monocytes (%) (Auto) 7.4, Eosinophils (%) (Auto) 0.8, Basophils (%) (Auto ) 0.8, Sodium Level 129L, Potassium Level 4.1, Chloride Level 97L, Carbon Dioxide Level 24, Anion Gap 8, Blood Urea Nitrogen 27H, Creatinine 0.8, Estimat Glomerular Filtration Rate > 60, Glucose Level 205H, Calcium Level 8.5 Height (Feet): 5 Height (Inches): 6.00 Weight (Pounds): 188 Objective deferred due to DEANNA+ Taj Srivastava MD Jan 06, 2020 08:00
[2020-01-06] MEDS: dexAMETHasone 10mg/ml Inj IV SCH (09:51)
[2020-01-06] MEDS: Tamsulosin 0.4mg cap ORAL SCH (09:51)
[2020-01-06] MEDS: Aspirin EC 81mg tab ORAL SCH (09:51)
--- NOTE | 2020-01-06 09:51 | NUR ---
CASE MANAGEMENT:REVIEW 01/06/20 SI: COVID PNEUMONIA 98.2 69 20 123/70 95% ON 4L/NC NA-129 BUN+27 IS: IV DECADRON QD SS INSULIN AC+HS ASA PO QD LOVENOX SQ QD FLOMAX PO QD VASOTEC PO Q12 NAPROXEN PO BID METFORMIN PO BID : TELEMETRY STATUS DCP: FROM HOME PLAN: CONTINUE TO TAPER OXYGEN
[2020-01-06] MEDS: Naproxen 500mg tab ORAL SCH ×2 (09:52→17:49)
[2020-01-06] MEDS: Enoxaparin 40mg Inj SUBQ SCH (09:54)
--- NOTE | 2020-01-06 10:01 | NUR ---
INSURANCE FAXED CLINICALS AND REVIEW TO FLAQUITA ARCINIEGA T: [phone] F: [phone] REF #[id number] AND [employer] F: [phone]
--- NOTE | 2020-01-06 10:38 | NUR ---
NURSE NOTES: MD Srivastava notified re: NA 129, awaiting response.
--- NOTE | 2020-01-06 10:42 | NUR ---
NURSE NOTES: Received TORB from MD Srivastava for BMP tomorrow AM.
--- NOTE | 2020-01-06 10:54 | Infectious Diseases Prog Note ---
Assessment/Plan Assessment/Plan antibiotics remdesivir 8.10.20 - dexamethasone A 1. COVID 19 pneumonia on 3 liters O2, 95 % saturation s/p remdesivir 2. diabetes mellitus 3. hypertension P 1. complete dexamethasone day 10 3. continue isolation 4. will follow up cultures Subjective Constitutional: Denies: fever, chills Respiratory: Reports: shortness of breath - decreased, dry cough - decreased Gastrointestinal/Abdominal: Denies: nausea, vomiting, diarrhea Musculoskeletal: Denies: pain Allergies: Coded Allergies: No Known Allergies (Unverified , 12/28/19) Objective Last 24 Hour Vital Signs Date Time Temp Pulse Resp B/P (MAP) Pulse Ox O2 Delivery O2 Flow Rate FiO2 01/06/20 09:52 123/70 01/06/20 09:00 Nasal Cannula 3.0 01/06/20 08:00 68 01/06/20 08:00 98.2 69 20 123/70 (87) 95 01/06/20 04:00 60 01/06/20 04:00 97.6 68 22 131/73 (92) 95 01/06/20 00:00 97.1 75 21 145/79 (101) 97 01/06/20 00:00 62 01/05/20 21:00 Venturi Mask 6.0 01/05/20 20:16 131/71 01/05/20 20:00 70 01/05/20 20:00 96.9 81 22 131/71 (91) 96 01/05/20 16:00 71 01/05/20 16:00 97.5 79 20 127/74 (91) 92 01/05/20 12:00 97.6 74 20 112/63 (79) 97 01/05/20 12:00 67 Height (Feet): 5 Height (Inches): 6.00 Weight (Pounds): 188 Laboratory Tests Test 01/05/20 11:25 01/05/20 16:36 01/06/20 04:30 POC Whole Blood Glucose Pending Pending White Blood Count 10.8 K/UL (4.8-10.8) Red Blood Count 5.28 M/UL (4.70-6.10) Hemoglobin 15.4 G/DL (14.2-18.0) Hematocrit 46.2 % (42.0-52.0) Mean Corpuscular Volume 87 FL (80-99) Mean Corpuscular Hemoglobin 29.1 PG (27.0-31.0) Mean Corpuscular Hemoglobin Concent 33.4 G/DL (32.0-36.0) Red Cell Distribution Width 12.0 % (11.6-14.8) Platelet Count 559 K/UL (150-450) H Mean Platelet Volume 5.1 FL (6.5-10.1) L Neutrophils (%) (Auto) 66.6 % (45.0-75.0) Lymphocytes (%) (Auto) 24.4 % (20.0-45.0) Monocytes (%) (Auto) 7.4 % (1.0-10.0) Eosinophils (%) (Auto) 0.8 % (0.0-3.0) Basophils (%) (Auto) 0.8 % (0.0-2.0) Sodium Level 129 MMOL/L (136-145) L Potassium Level 4.1 MMOL/L (3.5-5.1) Chloride Level 97 MMOL/L (98-107) L Carbon Dioxide Level 24 MMOL/L (21-32) Anion Gap 8 mmol/L (5-15) Blood Urea Nitrogen 27 mg/dL (7-18) H Creatinine 0.8 MG/DL (0.55-1.30) Estimat Glomerular Filtration Rate > 60 mL/min (>60) Glucose Level 205 MG/DL (74-106) H Calcium Level 8.5 MG/DL (8.5-10.1) Current Medications Medications (Trade) Dose Ordered Sig/Anson Route PRN Reason Start Time Stop Time Status Last Admin Dose Admin Acetaminophen (Tylenol) 650 mg Q4H PRN ORAL t>100.5 01/01/20 10:44 01/31/20 10:43 01/01/20 21:08 Albuterol Sulfate (Proventil MDI) 2 puff Q6H PRN INH Shortness of Breath 01/01/20 10:45 03/31/20 10:44 Aspirin (Ecotrin) 81 mg DAILY ORAL 01/02/20 09:00 02/12/20 08:59 01/06/20 09:51 Bisacodyl (Dulcolax) 10 mg DAILYPRN PRN ORAL Constipation 01/01/20 14:15 03/31/20 14:14 Dexamethasone Sodium Phosphate (Decadron 10mg/ ml Inj) 6 mg DAILY IV 01/02/20 09:00 01/07/20 09:01 01/06/20 09:51 Dextrose (Dextrose 50%) 25 ml Q30M PRN IV Hypoglycemia 01/03/20 12:30 04/02/20 12:29 Dextrose (Dextrose 50%) 50 ml Q30M PRN IV Hypoglycemia 01/03/20 12:30 04/02/20 12:29 Enalapril Maleate (Vasotec) 10 mg EVERY 12 HOURS ORAL 01/01/20 21:00 01/28/20 08:59 01/06/20 09:52 Enoxaparin Sodium (Lovenox) 40 mg DAILY SUBQ 01/02/20 09:00 03/28/20 08:59 01/06/20 09:54 Insulin Aspart (NovoLOG) BEFORE MEALS AND HS SUBQ 01/03/20 16:30 04/02/20 16:29 01/06/20 06:09 Magnesium Hydroxide (Mom) 30 ml DAILYPRN PRN ORAL Constipation 01/01/20 14:15 01/31/20 14:14 01/01/20 17:16 Metformin HCl (Glucophage) 500 mg BID@0630,1630 ORAL 01/01/20 16:30 01/28/20 06:29 01/06/20 06:08 Naproxen (Naprosyn) 500 mg TWICE A DAY ORAL 01/01/20 18:00 01/28/20 08:59 01/06/20 09:52 Ondansetron HCl (Zofran) 4 mg Q6H PRN IVP Nausea & Vomiting 01/01/20 10:46 01/31/20 10:45 Tamsulosin HCl (Flomax) 0.4 mg DAILY ORAL 01/02/20 09:00 01/28/20 08:59 01/06/20 09:51 Caren Gant MD Jan 06, 2020 10:54
[2020-01-06 11:40] VITALS: BP 125/74
[2020-01-06 15:55] VITALS: BP 125/75
--- NOTE | 2020-01-06 18:00 | NUR ---
NURSE NOTES: MD Srivastava updated on BG trend per order. BG 426, immediately rechecked and BG 410. Covered with 14 units insulin sliding scale. BG now 346. Pt. asymptomatic. Will continue to monitor. No new orders at this time.
--- NOTE | 2020-01-06 19:05 | NUR ---
NURSE NOTES: Received TORB from MD Srivastava to start levimir 5 units subcutaneous BID.
--- NOTE | 2020-01-06 19:23 | NUR ---
NURSE HAND-OFF REPORT: Important Events on Shift: PLT 559, NA 129, MD Srivastava aware. Patient Status: Stable, AAO x4, no acute distress, chronic back pain 1-07/01, breathing shallow, regular, unlabored, eupneic on 1L NC. Diet: CCHO medium/cardiac Pending Orders: Venous Duplex, CXR Pending Results/Labs: N/A Pending MD notification: N/A Latest Vital Signs: Temperature 97.9 , Pulse 78 , B/P 125 /75 , Respiratory Rate 20 , O2 SAT 95 , Nasal Cannula, O2 Flow Rate 3.0 . Vital Sign Comment: N/A EKG Rhythm: Sinus Rhythm Rhythm change?: N MD Notified?: N - MD Response: Latest Jade Fall Score: 35 Fall Risk: Medium Risk Safety Measures: Call light Within Reach, Bed Alarm Zone 1, Side Rails Side Rails x2, Bed position Low and Locked. Fall Precautions: Yellow Socks Yellow Gown Door Sign Patient Fall Education Report given to SOL Reyes.
--- NOTE | 2020-01-06 19:24 | NUR ---
NURSE NOTES: Patient received from Nora HORTON. Patient in stable condition. Patient alert and oriented x4. No s/s of acute distress. On 1L of O2 saturating well at 96%. IV site on Right hand 22G SL patent and intact. Pending orders for Venous Duplex and CXR. Patient wearing yellow gown and yellow socks. Bed in lowest position and locked. Bed alarm on. Bedside table and call light within reach. Will continue to monitor.
[2020-01-06 20:00] VITALS: BP 126/71
[2020-01-06] MEDS: Levemir Flexpen SUBQ SCH (20:29)
[2020-01-07] VITALS: BP 130/67
[2020-01-07 04:00] VITALS: BP 128/72
[2020-01-07] MEDS: metFORMIN 500mg tab ORAL SCH (05:37)
[2020-01-07] MEDS: NovoLOG Insulin Flexpen SUBQ SCH ×2 (06:46→12:19)
--- NOTE | 2020-01-07 07:22 | NUR ---
NURSE HAND-OFF REPORT: Important Events on Shift:[None] Patient Status: [Stable] Diet: [CCHO Medium and Cardiac Diet] Pending Orders: [] Pending Results/Labs:[BMP] Pending MD notification:[] Latest Vital Signs: Temperature 97.9 , Pulse 70 , B/P 128 /72 , Respiratory Rate 18 , O2 SAT 95 , Nasal Cannula, O2 Flow Rate 1.0 . Vital Sign Comment: [] EKG Rhythm: Sinus Rhythm Rhythm change?: N MD Notified?: N - MD Response: Latest Jade Fall Score: 35 Fall Risk: Medium Risk Safety Measures: Call light Within Reach, Bed Alarm Zone 1, Side Rails Side Rails x2, Bed position Low and Locked. Fall Precautions: Yellow Socks Yellow Gown Door Sign Patient Fall Education Report given to [Neeru HORTON].
[2020-01-07 07:24] LABS: ANION GAP 11 mmol/L (5-15); BLOOD UREA NITROGEN 23 mg/dL (7-18); CALCIUM 8.5 MG/DL (8.5-10.1); CARBON DIOXIDE 25 MMOL/L (21-32); CHLORIDE 97 MMOL/L (98-107); CREATININE 0.7 MG/DL (0.55-1.30); POTASSIUM 4.1 MMOL/L (3.5-5.1); SODIUM 133 MMOL/L (136-145)
--- NOTE | 2020-01-07 07:42 | NUR ---
NURSE NOTES: Received report from SOL Reyes. Patient AAO x4. No acute distress. Mild SOB on NC 1L. Breathing regular, unlabored, RR 18-20. NC stopped, SPO2 94% on RA. Denies pain. Radial pulses palpable, equal. IV intact, flushed patent. No redness or infiltration. Fall precautions in place. Plan is to reswab COVID today.
[2020-01-07 08:00] VITALS: BP 130/67
--- NOTE | 2020-01-07 09:04 | NUR ---
RADIOLOGY: PCXR COMPLETED 0900HRS. NF
--- NOTE | 2020-01-07 09:04 | General Progress Note ---
Assessment/Plan Assessment/Plan: Impression: Pneumonia due to COVID-19 virus Hypoxia Diabetes Hypertension hyperglycemia Plan: dc home has meds at home confirmed cleared by ID impression, plan, and exam edited and reviewed in detail care discussed with RN Subjective Allergies: Coded Allergies: No Known Allergies (Unverified , 12/28/19) Subjective d/w RN off oxygen meds noted Objective Last 24 Hour Vital Signs Date Time Temp Pulse Resp B/P (MAP) Pulse Ox O2 Delivery O2 Flow Rate FiO2 01/07/20 08:00 97.9 69 20 130/67 (88) 94 01/07/20 07:40 Room Air 01/07/20 04:00 97.9 87 18 128/72 (90) 95 01/07/20 04:00 70 01/07/20 00:00 98.1 85 18 130/67 (88) 95 01/07/20 00:00 81 01/06/20 21:00 Nasal Cannula 1.0 01/06/20 20:20 125/75 01/06/20 20:00 98.1 88 19 126/71 (89) 95 01/06/20 20:00 80 01/06/20 16:00 78 01/06/20 15:55 97.9 79 20 125/75 (92) 95 01/06/20 12:00 63 01/06/20 11:40 98.2 64 20 125/74 (91) 95 01/06/20 09:52 123/70 Intake and Output 01/06/20 01/07/20 19:00 07:00 Intake Total 740 ml Output Total 1400 ml 200 ml Balance -660 ml -200 ml Intake Oral 740 ml Output Urine Total 1400 ml 200 ml # Voids 1 1 Laboratory Tests 01/06/20 11:23: POC Whole Blood Glucose 275H 01/06/20 16:01: POC Whole Blood Glucose 423H 01/06/20 16:04: POC Whole Blood Glucose 410H 01/06/20 17:52: POC Whole Blood Glucose 346H 01/06/20 20:21: POC Whole Blood Glucose [Pending] 01/07/20 04:15: Sodium Level 133L, Potassium Level 4.1, Chloride Level 97L, Carbon Dioxide Level 25, Anion Gap 11, Blood Urea Nitrogen 23H, Creatinine 0.7, Estimat Glomerular Filtration Rate > 60, Glucose Level 144H, Calcium Level 8.5 01/07/20 04:41: POC Whole Blood Glucose 160H Height (Feet): 5 Height (Inches): 6.00 Weight (Pounds): 187 Objective deferred due to DEANNA+ Taj Srivastava MD Jan 07, 2020 09:04
[2020-01-07] MEDS: dexAMETHasone 10mg/ml Inj IV SCH (09:35)
[2020-01-07] MEDS: Aspirin EC 81mg tab ORAL SCH (09:36)
[2020-01-07] MEDS: Tamsulosin 0.4mg cap ORAL SCH (09:36)
[2020-01-07] MEDS: Naproxen 500mg tab ORAL SCH (09:37)
[2020-01-07] MEDS: Enoxaparin 40mg Inj SUBQ SCH (09:38)
[2020-01-07] MEDS: Levemir Flexpen SUBQ SCH (09:46)
--- NOTE | 2020-01-07 10:36 | NUR ---
RADIOLOGY DEPT., CHEST X-RAY DONE.-P.DYE
--- NOTE | 2020-01-07 10:44 | Infectious Diseases Prog Note ---
Assessment/Plan Assessment/Plan antibiotics none A 1. COVID 19 pneumonia on room air, 94 % saturation s/p remdesivir 2. diabetes mellitus 3. hypertension P 1. continue off antibiotics 2. continue isolation 3. will follow up cultures 4. okay for discharge from ID perspective Subjective Constitutional: Denies: fever, chills Respiratory: Reports: shortness of breath - decreased, dry cough - decreased Gastrointestinal/Abdominal: Denies: nausea, vomiting, diarrhea Musculoskeletal: Denies: pain Allergies: Coded Allergies: No Known Allergies (Unverified , 12/28/19) Objective Last 24 Hour Vital Signs Date Time Temp Pulse Resp B/P (MAP) Pulse Ox O2 Delivery O2 Flow Rate FiO2 01/07/20 09:37 130/67 01/07/20 08:00 97.9 69 20 130/67 (88) 94 01/07/20 07:40 Room Air 01/07/20 04:00 97.9 87 18 128/72 (90) 95 01/07/20 04:00 70 01/07/20 00:00 98.1 85 18 130/67 (88) 95 01/07/20 00:00 81 01/06/20 21:00 Nasal Cannula 1.0 01/06/20 20:20 125/75 01/06/20 20:00 98.1 88 19 126/71 (89) 95 01/06/20 20:00 80 01/06/20 16:00 78 01/06/20 15:55 97.9 79 20 125/75 (92) 95 01/06/20 12:00 63 01/06/20 11:40 98.2 64 20 125/74 (91) 95 Height (Feet): 5 Height (Inches): 6.00 Weight (Pounds): 187 Laboratory Tests Test 01/06/20 11:23 01/06/20 16:01 01/06/20 16:04 01/06/20 17:52 POC Whole Blood Glucose 275 MG/DL (74-106) H 423 MG/DL (74-106) H 410 MG/DL (74-106) H 346 MG/DL (74-106) H Test 01/06/20 20:21 01/07/20 04:15 01/07/20 04:41 01/07/20 09:42 POC Whole Blood Glucose Pending 160 MG/DL (74-106) H 213 MG/DL (74-106) H Sodium Level 133 MMOL/L (136-145) L Potassium Level 4.1 MMOL/L (3.5-5.1) Chloride Level 97 MMOL/L (98-107) L Carbon Dioxide Level 25 MMOL/L (21-32) Anion Gap 11 mmol/L (5-15) Blood Urea Nitrogen 23 mg/dL (7-18) H Creatinine 0.7 MG/DL (0.55-1.30) Estimat Glomerular Filtration Rate > 60 mL/min (>60) Glucose Level 144 MG/DL (74-106) H Calcium Level 8.5 MG/DL (8.5-10.1) Current Medications Medications (Trade) Dose Ordered Sig/Anson Route PRN Reason Start Time Stop Time Status Last Admin Dose Admin Acetaminophen (Tylenol) 650 mg Q4H PRN ORAL t>100.5 01/01/20 10:44 01/31/20 10:43 01/01/20 21:08 Albuterol Sulfate (Proventil MDI) 2 puff Q6H PRN INH Shortness of Breath 01/01/20 10:45 03/31/20 10:44 Aspirin (Ecotrin) 81 mg DAILY ORAL 01/02/20 09:00 02/12/20 08:59 01/07/20 09:36 Bisacodyl (Dulcolax) 10 mg DAILYPRN PRN ORAL Constipation 01/01/20 14:15 03/31/20 14:14 Dextrose (Dextrose 50%) 25 ml Q30M PRN IV Hypoglycemia 01/03/20 12:30 04/02/20 12:29 Dextrose (Dextrose 50%) 50 ml Q30M PRN IV Hypoglycemia 01/03/20 12:30 04/02/20 12:29 Enalapril Maleate (Vasotec) 10 mg EVERY 12 HOURS ORAL 01/01/20 21:00 01/28/20 08:59 01/07/20 09:37 Enoxaparin Sodium (Lovenox) 40 mg DAILY SUBQ 01/02/20 09:00 03/28/20 08:59 01/07/20 09:38 Insulin Aspart (NovoLOG) BEFORE MEALS AND HS SUBQ 01/03/20 16:30 04/02/20 16:29 01/07/20 06:46 Insulin Detemir (Levemir) 5 units BID SUBQ 01/06/20 20:00 04/05/20 19:59 01/07/20 09:46 Magnesium Hydroxide (Mom) 30 ml DAILYPRN PRN ORAL Constipation 01/01/20 14:15 01/31/20 14:14 01/01/20 17:16 Metformin HCl (Glucophage) 500 mg BID@0630,1630 ORAL 01/01/20 16:30 01/28/20 06:29 01/07/20 05:37 Naproxen (Naprosyn) 500 mg TWICE A DAY ORAL 01/01/20 18:00 01/28/20 08:59 01/07/20 09:37 Ondansetron HCl (Zofran) 4 mg Q6H PRN IVP Nausea & Vomiting 01/01/20 10:46 01/31/20 10:45 Tamsulosin HCl (Flomax) 0.4 mg DAILY ORAL 01/02/20 09:00 01/28/20 08:59 01/07/20 09:36 Caren Gant MD Jan 07, 2020 10:44
--- NOTE | 2020-01-07 10:56 | NUR ---
CASE MANAGEMENT:REVIEW 01/07/20 DISCHARGE HOME ON ROOM AIR TODAY Addendum: 01/07/20 at 1205 by MELISSA ALCARAZ LVN LVN DISCHARGE SUMMARY NOT YET AVAILABLE
--- NOTE | 2020-01-07 11:49 | Diagnostic Imaging Report ---
Indication: Reason For Exam: SOB Technique: Single AP view of the chest. Comparison: Chest radiograph dated 01/03/2020 Findings: The cardiomediastinal silhouette is unchanged. No significant change in bilateral diffuse severe airspace disease. There are low lung volumes. No increasing pleural effusion. No pneumothorax. IMPRESSION: No significant change from prior examination.
[2020-01-07 12:00] VITALS: BP 126/72
--- NOTE | 2020-01-07 12:08 | NUR ---
INSURANCE FAXED DISCHARGE NOTIFICATION FLAQUITA ARCINIEGA T: [phone] F: [phone] REF #[id number] AND [employer] F: [phone]
--- NOTE | 2020-01-07 14:00 | NUR ---
NURSE NOTES: Discharge education provided to patient in [employer]. Discharge paperwork signed including discharge instructions, personal belongings, and discharge checklist. sap bi architect, ID band, and IV removed. Patient assisted off the floor by Carol/Comic Book Artist via wheelchair. Patient in stable condition, AAO x4. Patient left facility with belongings in hand and medications from home.
--- NOTE | 2020-01-09 09:05 | Discharge Summary ---
Discharge Summary Discharge Summary _ DATE OF ADMISSION: 12/28/2019 DATE OF DISCHARGE: 01/07/2020 DISCHARGED BY: Dr. Srivastava REASON FOR ADMISSION: 64 years old male with past medical history of hypertension,diabetes mellitus, presented to emergency department from home due to shortness of breath for the past 2 days. Shortness of breath was worse with exertion. Patient reported testing positive for coronavirus 4 weeks ago. He reported mild productive cough and intermittent fevers. No chest pain . No abdominal pain, nausea, vomiting, diarrhea. He denied any prior cardiac history. Upon evaluation patient was hypoxic and required 100% nonrebreathing mask. Blood pressure was elevated 173/101 and patient had low-grade fever. Chest x-ray demonstrated bilateral infiltrates, likely pneumonia. Troponin was negative. EKG revealed sinus rhythm, with incomplete right bundle branch block. Rapid COVID-19 in emergency department was positive In emergency department patient received Decadron and azithromycin and admitted to isolation room for further management. CONSULTANTS: ID specialist Dr. Gant HOSPITAL COURSE: Patient admitted to telemetry floor to isolation room. Patient was on Remdesivir and Decadron. Empiric antibiotics provided. DVT prophylaxis with Lovenox initiated. Supplemental oxygen provided and titrated to keep pulse oximetry above 92%. Pulmonary toilet with albuterol via MDI provided as needed. Blood pressure was managed with Vasotec. Initial hypertensive urgency resolved. Hemoglobin A1c 10.3, clearly not at goal. Blood sugar was managed with metformin , long-acting insulin/Levemir an sliding scale of insulin as needed. Flomax continued. Blood culture came back negative. Patient was followed-up with a chest x-ray. As patient clinically improved, he was able to be weaned from supplemental oxygen. Patient completed treatment with Remdesivir and Decadron. Repeated rapid COVID-19 on 01/06 was negative. Prior to discharge pulse oximetry was 94% on room air . Patient clinically stabilized and was ready for discharge home. FINAL DIAGNOSES: Pneumonia due to COVID-19 infection Hypoxia Diabetes mellitus Hypertension with initial hypertensive urgency Hyperglycemia DISCHARGE MEDICATIONS: See Medication Reconciliation list. DISCHARGE INSTRUCTIONS: Patient was discharged home. Follow-up with a primary care provider in 1 week. I have been assigned to dictate discharge summary for this account. I was not involved in the patient's management. Fabi Mcrae NP Jan 09, 2020 09:05
== END 2020-01-07 14:58 | disposition home or self-care (01) | DRG 137 ==
LOC: EDBD 19:37 → EMR 19:45 → 2E 21:34 → EDBEDREQ 21:51 → 4E 12-31 21:27 → 2E 01-01 10:18
DX: U07.1 COVID-19 (principal); J12.89 Other viral pneumonia; R09.02 Hypoxemia; E11.65 Type 2 diabetes mellitus with hyperglycemia; I16.0 Hypertensive urgency; I10 Essential (primary) hypertension; Z79.82 Long term (current) use of aspirin; Z79.4 Long term (current) use of insulin
CPT/HCPCS: 36415; 71045; 80048; 80053; 81003; 82248; 82962; 83036; 83605; 83880; 84484; 85025; 87040; 93005; 96365; 96375; 99285; J1815; S5561; U0002